=== PATIENT | female | born 1950 | race Caucasian/White ===

== ENCOUNTER 2021-03-28 10:03 | Outpatient (CLI) | payer MEDICARE, SELFPAY ==
[2021-03-28 10:33] LABS: Hemoglobin A1C 6.2 % (<5.7)
== END 2021-03-28 10:04 | disposition home or self-care (01) ==
PROVIDERS: PCP Family Medicine; Visit Provider Family Medicine
DX: E11.9 Type 2 diabetes mellitus without complications (principal)
CPT/HCPCS: 36415; 83036

== ENCOUNTER 2021-08-02 10:13 | Outpatient (CLI) | payer MEDICARE, SELFPAY ==
--- NOTE | ~2021-08-02 | MM_ITS ---
EXAMINATION: MM screening miller BI w lenny HISTORY: Screening TECHNIQUE: Craniocaudal and mediolateral oblique 3-D tomosynthesis images were obtained and synthetic 2-D images were generated. CAD analysis was submitted and interpreted. COMPARISON: 11/08/2016 BREAST PARENCHYMAL COMPOSITION: The breasts are heterogeneously dense, which may obscure small masses . FINDINGS: There is no evidence of suspicious mass, calcification, or architectural distortion to sugg est malignancy in either breast. There has been no suspicious interval change. IMPRESSION: 1. No mammographic evidence of malignancy. 2. Recommend routine screening mammography in one year. BI-RADS Category 1: Negative Reviewed, dictated and finalized at location A.
== END 2021-08-02 10:14 | disposition home or self-care (01) ==
LOC: CHSIMG 10:15
PROVIDERS: PCP Family Medicine; Visit Provider Family Medicine
DX: Z12.31 Encounter for screening mammogram for malignant neoplasm of breast (principal)
CPT/HCPCS: 77063; 77067

== ENCOUNTER 2022-02-06 09:41 | Outpatient (CLI) | payer MEDICARE, SELFPAY ==
[2022-02-06 09:59] LABS: Hematocrit 41.7 % (35.0-42.0); Hemoglobin 13.7 g/dL (11.7-13.8); Mean Corpuscular HGB Conc 32.9 g/dL (32.0-36.0); Mean Corpuscular Hemoglobin 33.3 pg (27.0-31.0); Mean Corpuscular Volume 101.5 fL (78.0-102.0); Mean Platelet Volume 8.9 fl (9.2-11.8); Platelet Count Result 290 K/mm3 (150-420); Red Blood Count 4.11 M/mm3 (4.20-5.40); Red Cell Distribution Width 12.5 % (11.6-14.4); White Blood Count 8.6 K/mm3 (4.8-10.8)
[2022-02-06 10:08] LABS: Microalbumin Urine Random 61.8 mg/L
[2022-02-06 10:10] LABS: Hemoglobin A1C 6.2 % (<5.7)
[2022-02-06 10:17] LABS: Creatinine Urine 332.14 mg/dL (40-278); MALB Creatinine Ratio 18.6 mg/g (0-30)
[2022-02-06 10:32] LABS: Alanine Aminotransferase 23 U/L (14-59); Albumin Level 4.2 g/dL (3.4-5.0); Alkaline Phosphatase 95 U/L (46-116); Anion Gap 10 mmol/L (8-16); Aspartate Amino Transferase 18 U/L (15-37); Bilirubin,Total 0.4 mg/dL (0.00-1.00); Blood Urea Nitrogen 20 mg/dL (7-18); Calcium 9.5 mg/dL (8.5-10.1); Carbon Dioxide 27 mmol/L (21-32); Chloride 102 mmol/L (98-108); Cholesterol 283 mg/dL (0-200); Estimated Glomerular Filt Rate 33; Glucose 136 mg/dL (70-99); HDL Direct 52 mg/dL (40-60); LDL Cholesterol Calculated 173 mg/dL (<130); Osmolality Calculated 292 mOsm/kg (285-295); Potassium 4.4 mmol/L (3.5-5.1); Sodium 139 mmol/L (136-145); Total Protein 7.6 g/dL (6.4-8.2); Triglycerides 291 mg/dL (0-150)
== END 2022-02-06 09:42 | disposition home or self-care (01) ==
LOC: CHSLAB 09:47
PROVIDERS: PCP Family Medicine; Visit Provider Family Medicine
DX: E11.9 Type 2 diabetes mellitus without complications (principal); I10 Essential (primary) hypertension
CPT/HCPCS: 36415; 80053; 80061; 82043; 83036; 85027

== ENCOUNTER 2022-02-11 08:31 | Outpatient (CLI) | payer MEDICARE, SELFPAY ==
--- NOTE | 2022-02-11 08:33 | EST_ITS ---
Patient Info Name: Soheila Chicas Age: 71 years : 1950 Gender: Female Ht: 60 in Wt: 177 lbs BSA: 1.88 m2 HR: 89 bpm BP: 151 / 70 mmHg Heart Rhythm: Sinus Rhythm Technical Quality: Excellent Exam Date: 02/11/2022 10:05 AM Exam Location: [facility] Patient Status: Outpatient Admit Date: 02/11/2022 Staff Ordering Physician: Edward Acharya DO Attending Provider: Edward Acharya DO Exercise Technologist: Ana Lucio CRT Exercise Physician: Angelina Parekh CEP Exam Type: CA stress mg w NM Study Info Indications LEWIS - A nuclear stress test was performed. History/Risk Factors Hypertension: Yes Dyslipidemia: Yes Obesity: Yes Diabetes Mellitus: Type II History/Risk Factors Dyslipidemia. Diabetes Type II. Hypertension. Obesity. Summary 1. 1. Abnormal lexiscan stress test for ischemic ST changes by ECG criteria. 2. 2. Baseline hypertension. 3. 3. Nuclear scan to follow and will be reported separately. Please correlate with it. Protocol: LEXISCAN Stress ECG Details Stage: REST Duration (min): 5 min : 12 sec HR (bpm): 89 SBP (mmHg): 151 DBP (mmHg): 70 Stage: REST Duration (min): 13 min : 49 sec HR (bpm): 83 SBP (mmHg): 151 DBP (mmHg): 70 Stage: STAGE 1 Duration (min): 0 min : 7 sec HR (bpm): 83 SBP (mmHg): 151 DBP (mmHg): 70 Stage: RECOVERY Duration (min): 0 min : 52 sec HR (bpm): 108 SBP (mmHg): 151 DBP (mmHg): 70 Stage: RECOVERY Duration (min): 1 min : 52 sec HR (bpm): 106 SBP (mmHg): 196 DBP (mmHg): 78 Stage: RECOVERY Duration (min): 2 min : 52 sec HR (bpm): 103 SBP (mmHg): 190 DBP (mmHg): 79 Stage: RECOVERY Duration (min): 3 min : 52 sec HR (bpm): 104 SBP (mmHg): 185 DBP (mmHg): 79 Stage: RECOVERY Duration (min): 4 min : 52 sec HR (bpm): 105 SBP (mmHg): 183 DBP (mmHg): 76 Stage: RECOVERY Duration (min): 5 min : 52 sec HR (bpm): 105 SBP (mmHg): 183 DBP (mmHg): 76 Stage: RECOVERY Duration (min): 6 min : 11 sec HR (bpm): 105 SBP (mmHg): 150 DBP (mmHg): 81 Rest HR: 83 bpm Peak HR: 108 bpm Rest Sys BP: 151 mmHg Peak Sys BP: 196 mmHg Max Pred HR: 148 bpm % Max Pred HR: 73 % Target HR: 126 bpm Max RPP: 21,168 bpm*mmHg BP Response: Patient exhibited a hypertensive response with stress Termination Reason: Completed Protocol Cardiac Symptoms: Flushing, Chest pain, Dyspnea Total Time: 0 min : 7 sec Rest Rios BP: 70 mmHg Peak Rios BP: 78 mmHg Total Dose: 0.4 mg Resting ECG Normal sinus rhythm, borderline ST-T wave abnormality in inf/lat leads. Stress ECG 1 mm [address] and horizontal [address] depression in II, III, avF, V5-V6. Arrhythmias None. Report Signatures
--- NOTE | 2022-02-11 12:07 | WPDCARIOSTRE ---
Nuclear Stress Test INDICATIONS Indications: LEWIS PROCEDURE Procedure Performed: Myocardial Perf Spect-Multi Procedure: Patient underwent a lexiscan stress test and was immediately injected with 28.9 mCi of cardiolyte. Multiple tomographic images were obtained. These are of good quality. There is no evidence of perfusion defect during stress imaging. A separate resting images were obtained after patient was injected with 10 mCi of cardiolyte. Multiple tomographic images were obtained. These are of good quality. There is no evidence of perfusion defect during rest imaging. CONCLUSION Conclusion: 1. Normal myocardial perfusion imaging demonstrating no perfusion defects during stress or rest imaging. 2. No evidence of reversible ischemia. 3. Left ventriculogram demonstrates hyperdynamic LV systolic function with measured ejection fraction of 87%, and no wall motion abnormalities. The left ventricle is small with EDV at 25 ml. 4. TID score is normal at 0.99.
== END 2022-02-11 08:32 | disposition home or self-care (01) ==
LOC: CHSIMG 08:33
PROVIDERS: PCP Family Medicine; Visit Provider Family Medicine
DX: R06.00 Dyspnea, unspecified (principal); I10 Essential (primary) hypertension
CPT/HCPCS: 78452; 93017; A9502; J2785

== ENCOUNTER 2022-02-22 09:57 | Outpatient (CLI) | payer MEDICARE, SELFPAY ==
--- NOTE | 2022-02-28 14:17 | WPDPFTINT ---
PFT Procedure Performed PFT Procedure Performed Spirometry with Pre/Post Bronchodilator Plethysmography (Lung Vol) Diffusing Cap (DLCO) Flow Vol Loop PFT Interpretation DOS: 02/23/20 133%, REQUESTING: Dr. Acharya REASON FOR TESTING: Dyspnea PULMONARY FUNCTION TESTS Results are reliable and reproducible. Spirometry: The pre bronchodilator FEV1 is 65% predicted, 1.18 L, mildly decreased. The pre bronchodilator FVC is 68%, mildly reduced, 1.53 L. The FEV1/ FVC ratio was 93%, normal. The FEF 25-75% is 58% predicted with a 34% increase after bronchodilator administration. There is a 15% increase in the FEV1 which is less than 200 mL so this is not statistically significant. The FVC increases by 9% after bronchodilator therapy which is not statistically significant. Lung volumes: Total lung capacity is increased 123% predicted, 4.91 L. This is consistent with mild hyperinflation. The slow vital capacity is 75% predicted, and this is larger than the forced vital capacity in the spirometry. There is an absolute increase of 170 ml which may be significant. The FRC is increased to 173% predicted. the residual volume is 196% predicted, consistent with severe air trapping, 3.21 L. RV/ TLC increased 65% predicted also consistent with air trapping. Airway resistance is normal. Diffusion: DLCO is 64%, mildly decreased. The DLCO/VA is 133%. Flow volume loop: Normal. IMPRESSION: This study indicates a small airways pattern with good response to bronchodilator in the small airways, mild hyperinflation, severe air trapping, and a mild diffusion impairment. Gayle Long MD
== END 2022-02-22 09:58 | disposition home or self-care (01) ==
PROVIDERS: PCP Family Medicine; Visit Provider Family Medicine
DX: R68.89 Other general symptoms and signs (principal); R06.00 Dyspnea, unspecified
CPT/HCPCS: 94060; 94726; 94729

== ENCOUNTER 2022-06-06 00:31 | Day surgery (SDC) | payer MEDICARE, SELFPAY ==
[2022-06-05 11:43] VITALS: BMI 34.0
[2022-06-06] VITALS (9 sets, daily range): BP systolic 142–167; BP diastolic 62–80; PULSE 73–79; RESP 18–22; TEMP 36.6; O2SAT 97–100; BMI 34.2
[2022-06-06] MEDS: SODIUM CHLORIDE 0.9% IV 500 ML 100 ML IV CONT (07:35)
[2022-06-06 07:50] LABS: Basophils Percent Auto 0.6 % (0.2-1.2); Eosinophils Percent Auto 0.2 % (0-4.4); Hematocrit 37.6 % (37.0-47.0); Hemoglobin 12.1 g/dL (12.0-15.0); Immature Granulocyte Absolute 0.02 K/mm3 (0.00-0.031); Immature Granulocyte Percent A 0.3 % (0-0.5); Lymphocytes Percent Auto 27.4 % (18.3-44.2); Mean Corpuscular HGB Conc 32.2 g/dl (32-36); Mean Corpuscular Hemoglobin 31.2 pg (26-34); Mean Corpuscular Volume 96.9 fl (80-100); Mean Platelet Volume 9.1 fl (7.4-10.4); Monocytes Absolute Auto 0.6 K/mm3 (0.1-0.6); Monocytes Percent Auto 9.5 % (2.6-8.5); Neutrophils Absolute Auto 4.1 K/mm3 (1.3-6.7); Platelet Count Result 272 k/mm3 (150-375); Red Blood Count 3.88 M/mm3 (4.2-5.4); Red Cell Distribution Width 12.4 % (11.5-14.5); White Blood Count 6.6 K/mm3 (4.5-10.0)
[2022-06-06 08:02] LABS: Anion Gap 10 mmol/L (8-16); Blood Urea Nitrogen 15 mg/dL (7-17); Calcium 8.9 mg/dL (8.4-10.2); Carbon Dioxide 26 mmol/L (22-30); Chloride 102 mmol/L (98-107); Estimated CRCL calculation 32 ml/min; Estimated Glomerular Filt Rate 40; Glucose 134 mg/dL (65-110); Prothrombin Time 12.7 Seconds (11.1-14.7); Sodium 138 mmol/L (137-145)
--- NOTE | 2022-06-06 10:33 | WPDHPUPDATE1 ---
History and Physical Update Update Date/Time: 06/06/22 10:33 History and Physical has been reviewed, including an updated exam of the patient. There are NO changes in the patient's condition. Risks, benefits, and alternatives have been discussed and questions answered. Patient agrees to proceed with procedure.
--- NOTE | 2022-06-06 10:33 | WPDMODSED ---
Moderate Sedation Note-Pt Data Patient Data Diagnosis: abnormal stress test Present Complaint: dyspnea on exertion Procedure to be performed/Plan: coronary angiogram with left heart catheterization with possible intervention Allergies Allergy/AdvReac Type Severity Reaction Status Date / Time prochlorperazine [Compazine] Allergy Intermediate Itching Verified 06/06/22 07:30 meperidine [Demerol] AdvReac Intermediate Other Verified 06/06/22 07:30 Home Medications Medication Instructions Recorded Confirmed Type oxybutynin chloride 5 mg 5 mg PO DAILY #90 tabs 02/06/22 06/05/22 Rx tablet,extended release 24 hr ropinirole 1 mg tablet 1 mg PO DAILY #30 tabs 02/08/22 06/05/22 Rx albuterol sulfate 90 mcg/actuation 1 inh inhalation Q4H PRN shortness 03/05/22 06/05/22 Rx aerosol inhaler of breath or wheezing #8.5 grams aspirin 81 mg capsule 81 mg PO DAILY 06/05/22 06/05/22 History atorvastatin 80 mg tablet 80 mg PO DAILY 06/05/22 06/05/22 History chlorpheniramine-dextromethorphan 1 tablet PO Q4-5H PRN cough and 06/05/22 06/05/22 History 4 mg-20 mg tablet runny nose gabapentin 300 mg capsule 300 mg PO TID 06/05/22 06/05/22 History metoprolol succinate 100 mg 100 mg PO DAILY 06/05/22 06/05/22 History tablet,extended release 24 hr multivitamin 1 tablet PO DAILY 06/05/22 06/05/22 History nifedipine 30 mg tablet,extended 30 mg PO DAILY 06/05/22 06/05/22 History release 24 hr valsartan 160 mg tablet 160 mg PO DAILY 06/05/22 06/05/22 History Current Medications: Active Medications Sodium Chloride (Normal Saline Iv) 500 mls @ 100 mls/hr IV CONT .Q5H ONE Stop: 06/06/22 12:29 Last Admin: 06/06/22 07:35 Dose: 100 mls/hr Sedation/Anesthesia: No previous sedation/anesthesia problems (including family history). [facility] Past Medical History Medical History Breast pain, right Chronic GERD CVA (cerebral vascular accident) Hyperlipidemia Hypertension Restless legs syndrome (RLS) Type 2 diabetes mellitus Urinary incontinence Surgical History Surgical History H/O dilation and curettage Family History Family History Father Family history of congenital heart disease Family history of malignant neoplasm Mother Family history of arthritis Mother Family history of type 2 diabetes mellitus Other Acute myocardial infarction Social History Social History Smoking status: Never smoker Alcohol intake: current Alcohol use details: rare social use Substance use: never Substance use type: does not use and prescription drug Living arrangements: alone Spiritual care concerns: No Mod Sed Physical Exam Physical Exam Pre Procedural Exam: Normal: Appearance, Eyes, Ears, Nose, Neck, Throat, Airway, Lungs, Heart Size, Heart Rate, Heart Rhythm, Neuro Exam, Abdomen, Liver, Kidneys, Spleen, Breasts, Genitalia, Extremities and Skin Hours since solid foods: 8 Hours since liquid intake: 8 Mallampati Classification: class 1 Internal Medicine - PN: Obj Da Vital Signs Vital Signs: Vital Signs - 24 hr 06/06/22 07:41 Temperature 36.6 C Pulse Rate 75 Respiratory Rate 19 Blood Pressure 155/62 H Pulse Oximetry 98 Oxygen Delivery Room Air Meds/Results Medications: Active Medications Generic Name Dose Route Start Last Admin Trade Name Freq PRN Reason Stop Dose Admin Sodium Chloride 500 mls @ 100 mls/hr 06/06/22 07:30 06/06/22 07:35 Normal Saline Iv IV CONT 06/06/22 12:29 100 mls/hr .Q5H ONE Administration Labs CBC & Chem 7: 06/06/22 07:28 06/06/22 07:28 Labs: Laboratory Results - last 24 hr 06/06/22 06/06/22 06/06/22 07:28 07:28 07:28 WBC 6.6 RBC 3.88 L Hgb 12.1 Hct 37.6 MCV 96.[address]
--- NOTE | 2022-06-06 10:33 | WPDCARDPROC ---
Cardiac Cath Procedure Note Date of procedure:: 06/06/22 Performing physician:: Candido Valle MD date of service 06/06/2022 Indication:: dyspnea on exertion Brief clinical history:: this 72-year-old female with past history of type 2 diabetes, CKD stage 3, obesity who was evaluated by Dr. Gonzalez for dyspnea on exertion and underwent Lexiscan stress test. The EKG portion was positive for ischemia but the imaging portion was negative for ischemia. Due to presence of persistent symptoms we decided to bring her here to rule out CAD. Procedure Procedure performed:: 1-Moderate sedation that started at and ended at using 6mg of Versed and 75mcg fentanyl. The registered nurse was marci hinson. 2-Selective left and right coronary angiogram. 3-Left heart catheterization with measurement of LVEDP and measurement of gradient across aortic valve. 4-Right common femoral arterial angiogram. 5-Deployment of 6 Mongolian Angio-Seal. 6- intravascular ultrasound of the left main coronary artery. 7- Deployment of a drug-eluting stent orsiro 2.75 x 15 covering proximal left circumflex artery. Sedation/Medication given:: Moderate sedation. Access site:: Right common femoral artery. Estimated blood loss:: 10cc Procedure note:: After informed consent patient was brought in to section laborer with the was draped and prepped in usual manner. Moderate sedation was given and the right groin was infiltrated using 1% lidocaine. Five Mongolian sheath was obtained using micropuncture needle and the modified Seldinger technique. Selective left coronary angiogram was done using JL4 catheter with the tip of the catheter placed in the left main coronary artery. Selective right coronary angiogram was done using JR4 catheter with the tip of the catheter placed to the right coronary artery. After that 5 Mongolian pigtail catheter was advanced across the aortic valve into the left ventricle with measurement of LVEDP and measurement of gradient across aortic valve. Right common femoral arterial angiogram was done. the right groin sheath was changed to 6 Mongolian sheath. After that CLS 3 was advanced and engaged the left main. Coronary luge wire was advanced to a ramus. Intravascular ultrasound was done with 5 total runs. Measurements of the distal left main 6.7 millimeter sq. after that the luge wire was directed to the left circumflex artery and balloon angioplasty of the proximal left circumflex artery done using 3 x 10 balloon under normal pressure for 25 seconds. Then deployed a drug-eluting stent orsiro 2.75 x 15 under normal pressure for 35 seconds. Findings:: 1- left coronary artery is a large artery that divides into large LAD, large circumflex arter, large ramusy. distal left main about 50%. 2- left anterior descending artery is a large artery that runs and wraps around the apex. At the junction of the mid to distal segment 40% calcified stenosis. Diagonal 1 branch is small with about 40-50% stenosis. Small diagonal 2 branch. 3- leftcircumflex artery is a large artery None at the junction of the proximal to mid segment 90%. 4- Ramus intermedius has diffuse 40-50% proximally. 4- right coronary artery is Large artery and dominant without significant disease. 5- LVEDP was 12mmhgand no gradient across aortic valve. 6- opening arterial pressure was 180/90 and closing pressure was 160/70 7- right femoral artery angiogram shows no significant disease in the right common femoral artery. 8- intravascular ultrasound of the left main coronary artery shows that the minimal luminal area 6.7 millimeter sq. Conclusion:: - Distal left main 50% with minimal luminal area on IVUS 6.7 millimeter sq. - successful stenting of proximal left circumflex artery Assessment and Plan Assessment and plan (1) Abnormal stress test: Code(s): R94.39 - Abnormal result of other cardiovascular function study Status: Acute (2) LEWIS (dyspnea on exertion): Code(s): R06.09 - Other forms
--- NOTE | 2022-06-06 15:40 | SUR.PHASEII ---
Discharge instructions read and handouts given to pt and daughter. pt and daughter states understanding of discharge instructions. Brilinta samples given to pt & instructed for pt to warehouse order picker rx at pharmacy.
== END 2022-06-06 17:00 | disposition home or self-care (01) ==
PROVIDERS: PCP Family Medicine; Visit Provider Internal Medicine Cardiovascular Disease
PROC: 4A023N7 Measurement of Cardiac Sampling and Pressure, Left Heart, Percutaneous Approach (ICD-10-PCS; CPT 93452; principal; 2022-06-06 10:30)
PROC: (CPT 92928; 2022-06-06 10:30)
DX: I25.10 Atherosclerotic heart disease of native coronary artery without angina pectoris (principal); R94.39 Abnormal result of other cardiovascular function study; R06.09 Other forms of dyspnea; I12.9 Hypertensive chronic kidney disease with stage 1 through stage 4 chronic kidney disease, or unspecified chronic kidney disease; E11.22 Type 2 diabetes mellitus with diabetic chronic kidney disease; N18.30 Chronic kidney disease, stage 3 unspecified; G25.81 Restless legs syndrome; K21.9 Gastro-esophageal reflux disease without esophagitis; E78.5 Hyperlipidemia, unspecified; Z86.73 Personal history of transient ischemic attack (TIA), and cerebral infarction without residual deficits; R32 Unspecified urinary incontinence; Z79.51 Long term (current) use of inhaled steroids; Z79.82 Long term (current) use of aspirin
CPT/HCPCS: 36415; 80048; 85025; 85610; 92978; 93458; A9270; C1753; C1760; C1874; C1887; C1894; C9600; G0269; J0583; J1644; J2250; J3010; J7040

== ENCOUNTER 2022-12-31 09:30 | Outpatient (RCR) | payer MEDICARE, SELFPAY | END 2022-12-31 15:32 | disposition home or self-care (01) | PROVIDERS: PCP Family Medicine; Visit Provider Internal Medicine Cardiovascular Disease | DX: Z95.5 Presence of coronary angioplasty implant and graft (principal) | CPT/HCPCS: 93798 ==

== ENCOUNTER 2023-01-02 09:17 | Outpatient (RCR) | payer MEDICARE, SELFPAY | END 2023-01-16 13:40 | disposition home or self-care (01) | LOC: CHSCPRIII 09:17 | PROVIDERS: PCP Family Medicine; Visit Provider Internal Medicine Cardiovascular Disease | DX: Z95.5 Presence of coronary angioplasty implant and graft (principal) | CPT/HCPCS: 99199 ==

== ENCOUNTER 2023-11-27 08:40 | Outpatient (CLI) | payer MEDICARE, SELFPAY ==
--- NOTE | 2023-11-27 15:59 | P.PCNPFT_ITS ---
PFT Interpretation DOS: 11/27/2023 REQUESTING: Dr. Edward Acharya REASON FOR TESTING: dyspnea on exertion PULMONARY FUNCTION TESTS Results were reliable reproducible. Spirometry: Pre-bronchodilator FEV1 is 1.34 L, 60% reduced. Pre- bronchodilator FVC is 1.05 L, 58%, reduced. The slow vital capacity is 1.61 L, 70%. FEV1/SVC =65%, reduced, consistent with airflow obstruction. After bronchodilator, there is a 26% increase in the FEV1, 1.32 L, 74% predicted. After bronchodilator, there is a 31% increase in the FVC, 1.77 L, 79%, now in the normal range. This is a significant increase in flow. The FEV1/FVC ratio is 75% after bronchodilator, normal. The [id number]% is 54%, and this value decreases 19% after bronchodilator. Lung volumes: Total lung capacity is 4.52 L, 114% predicted, normal. Slow vital capacity is 1.61 L, 70% predicted, higher than forced vital capacity obtained during spirometry. This large difference between SVC and FVC is consistent with dynamic airway collapse, a feature of obstruction. Residual volume is 2.91 L, 177%, elevated, consistent with severe air trapping. Airway resistance 135%. Diffusion: DLCO is 11.3, 62%, mildly decreased. DLCO /VA is 4.40, 128%, normal. Flow volume loop: Unremarkable. IMPRESSION: Mild obstructive ventilatory impairment, good response to bronchodilator, no hyperinflation, severe air trapping, mild diffusion impairment. This is a similar pattern to prior PFT on 02/23/2020. FEV1 was 1.18 L, 65%, FVC was 1.53 L, 68% which is similar to slow VC 1.61 L, 70%. Gayle Long MD
== END 2023-11-27 08:41 | disposition home or self-care (01) ==
PROVIDERS: PCP Family Medicine; Visit Provider Family Medicine
DX: J44.9 Chronic obstructive pulmonary disease, unspecified (principal); R94.2 Abnormal results of pulmonary function studies
CPT/HCPCS: 94060; 94726; 94729

== ENCOUNTER 2024-08-12 13:14 | Emergency (ER) | payer MEDICARE, SELFPAY ==
[2024-08-12] VITALS (7 sets, daily range): BP systolic 118–129; BP diastolic 53–73; PULSE 66–72; RESP 18–23; TEMP 36.6–36.7; O2SAT 98–100
--- NOTE | ~2024-08-12 | CT_ITS ---
EXAMINATION: CT brain wo con DATE: 08/12/2024 13:56 INDICATION: Near syncope. TECHNIQUE: Computed tomography (CT) of the head was performed without intravenous contrast. The mA wa s adjusted according to patient size. Iterative reconstruction technique was employed. The dose-lengt h product was 605.33 mGy-cm. COMPARISON: Head CT 01/14/2018 FINDINGS: There is an old infarct involving the left basal ganglia and adjacent white matter. There a re scattered areas of low attenuation in the cerebral white matter. There is no intracranial hemorrha ge, acute infarction, or abnormal intracranial mass lesion. The ventricles are normal in size. There are likely changes of ocular lens replacement surgeries. IMPRESSION: 1. Old infarct involving the left basal ganglia and adjacent white matter. 2. Moderate nonspecific cerebral white matter disease, which likely represents chronic small vessel i schemic disease. Reviewed, dictated and finalized at location A. IMPRESSION: 1. Old infarct involving the left basal ganglia and adjacent white matter. 2. Moderate nonspecific cerebral white matter disease, which likely represents chronic small vessel ischemic disease.
--- NOTE | 2024-08-12 13:25 | ECG_ITS ---
Test Date: 2024-08-12 13:34:55 Measurements Intervals [place] Rate: 64 P: 55 OK: 143 QRS: -1 QRSD: 84 T: 71 QT: 409 QTc: 422 Interpretive Statements SINUS RHYTHM NONSPECIFIC T-WAVE ABNORMALITY BORDERLINE ECG No previous ECG available for comparison Electronically Signed On 08-13-2024 12:43:05 CDT by Doug Severino M.D.
[2024-08-12 13:47] LABS: Basophils Absolute Auto 0.04 K/mm3 (0.00-0.10); Basophils Percent Auto 0.5 % (0.0-1.0); Hematocrit 35.9 % (35.0-42.0); Hemoglobin 11.9 g/dL (11.7-13.8); Immature Granulocyte Absolute 0.04 K/mm3 (0.00-0.00); Immature Granulocyte Percent A 0.5 % (0.0-0.0); Lymphocytes Absolute Auto 1.67 K/mm3 (1.10-4.50); Lymphocytes Percent Auto 21.5 % (18.0-42.0); Mean Corpuscular HGB Conc 33.1 g/dL (32-36); Mean Corpuscular Hemoglobin 31.8 pg (27.0-31.0); Mean Platelet Volume 9.4 fl (9.2-11.8); Monocytes Absolute Auto 0.59 K/mm3 (0.10-0.90); Monocytes Percent Auto 7.6 % (2.0-11.0); Neutrophils Absolute Auto 5.43 K/mm3 (1.70-7.20); Neutrophils Percent Auto 69.9 % (50.0-70.0); Nucleated Red Blood Cells Absolute Auto 0.02 K/mm3 (0.00-0.00); Nucleated Red Blood Cells Perc 0.3 % (0-0.0); Platelet Count Result 250 K/mm3 (150-420); Red Blood Count 3.74 M/mm3 (4.20-5.40); Red Cell Distribution Width 13.7 % (11.6-14.4); White Blood Count 7.8 K/mm3 (4.8-10.8)
[2024-08-12 14:10] LABS: Alanine Aminotransferase 22 U/L (14-59); Albumin Level 3.7 g/dL (3.4-5.0); Alkaline Phosphatase 122 U/L (46-116); Anion Gap 8 mmol/L (4-12); Aspartate Amino Transferase 25 U/L (15-37); Bilirubin,Total 0.5 mg/dL (0.00-1.00); Blood Urea Nitrogen 22 mg/dL (7-18); Calcium 9.2 mg/dL (8.5-10.1); Carbon Dioxide 27 mmol/L (21-32); Chloride 103 mmol/L (98-108); Estimated CRCL calculation 20 ml/min; Estimated Glomerular Filt Rate 23; Glucose 146 mg/dL (70-99); Osmolality Calculated 292 mOsm/kg (285-295); Potassium 3.6 mmol/L (3.5-5.1); Sodium 138 mmol/L (136-145); Total Protein 7.5 g/dL (6.4-8.2); Troponin I 4.5 ng/L (0.00-60.4)
[2024-08-12 14:16] LABS: NT Pro B Type Natriuretic Pept 298 pg/mL (0-450)
--- NOTE | 2024-08-12 14:22 | ED.DIZZY ---
HPI - Dizziness General Chief Complaint: Syncope Stated Complaint: syncopal episode; sob Source: patient, family and EMS Mode of arrival: EMS Limitations: no limitations History of Present Illness HPI Narrative: this is a 74-year-old female with history of hypertension/ CAD has a history of pre syncopal episodes today was sitting in her chair and slid out of her chair onto the floor did not pass out did not hit her head or have any injuries patient is back to her baseline was brought in by EMS currently doing well no dizziness no lightheadedness no chest pain or shortness of breath no fever chills. MD elicited complaint: near syncope Onset (ago): hour(s) Timing: gradual onset Severity: mild Description: lightheadedness Related Data Home Medications Medication Instructions Recorded Confirmed multivitamin 1 tablet PO DAILY 06/05/22 08/12/24 ticagrelor 60 mg tablet (Brilinta) 60 mg PO Q12H 10/21/23 08/12/24 Allergies Allergy/AdvReac Type Severity Reaction Status Date / Time prochlorperazine [Compazine] Allergy Intermediate Itching Verified 08/12/24 13:27 meperidine [Demerol] AdvReac Intermediate Other Verified 08/12/24 13:27 Review of Systems Review of Systems: All systems reviewed & are unremarkable except as noted in HPI and below PMFSH Past Medical History Medical History Breast pain, right Chronic GERD CVA (cerebral vascular accident) Hyperlipidemia Hypertension Restless legs syndrome (RLS) Type 2 diabetes mellitus Urinary incontinence Surgical History Surgical History H/O dilation and curettage Family History Family History Father Family history of congenital heart disease Family history of malignant neoplasm Mother Family history of arthritis Mother Family history of type 2 diabetes mellitus Other Acute myocardial infarction Social History Social History Smoking status: Never smoker Alcohol intake: current Alcohol use details: rare social use Substance use: never Substance use type: does not use and prescription drug Living arrangements: alone Spiritual care concerns: No Exam Const: General: healthy appearing, no acute distress and alert Nutritional Appearance: well nourished Orientation/consciousness: patient oriented x3 Limitations: no limitations HENMT: Head: normal to inspection Eyes: Conjunctivae: conjunctivae normal Pupils: Equal, round and reactive pupils present EOM: EOMs intact bilaterally Direct Ophthalmoscopy: no photophobia Neck: Neck: normal visual inspection and no lymphadenopathy Chest: Chest palpation & inspection: normal inspection of the chest Resp: Effort & Inspection: normal respiratory effort Auscultation: clear to auscultation bilaterally Cardio: Rate: regular rate Rhythm: regular rhythm GI: GI Palp: Yes Soft to palpation Auscultation: normal bowel sounds : General: Yes bladder normal to palpation Skin: General skin exam: normal color Rashes: no rashes Wounds: no wounds Neuro: General: patient oriented x3, moves all extremities, no meningeal signs and no focal motor deficits Cranial nerves: Yes Nystagmus not present Speech: normal speech Course Course Emergency Course: Patient had CT scan of the brain which showed no acute abnormalities EKG performed shows normal sinus rhythm labs performed show a chronic kidney disease otherwise vitals are stable advised follow-up with primary. Vital Signs Vital signs: Vital Signs Temperature 36.7 C 08/12/24 13:20 Pulse Rate 72 08/12/24 13:20 Respiratory Rate 18 08/12/24 13:20 Blood Pressure 129/53 L 08/12/24 13:20 Pulse Oximetry 100 08/12/24 13:20 Oxygen Delivery Room Air 08/12/24 13:20 Temperature 36.7 C 08/12/24 13:20 Pulse Rate 6
== END 2024-08-12 14:35 | disposition home or self-care (01) ==
PROVIDERS: Emergency Provider Emergency Medicine; PCP Family Medicine
DX: R55 Syncope and collapse (principal); I25.10 Atherosclerotic heart disease of native coronary artery without angina pectoris; E78.5 Hyperlipidemia, unspecified; E11.9 Type 2 diabetes mellitus without complications; Z86.73 Personal history of transient ischemic attack (TIA), and cerebral infarction without residual deficits; W07.XXXA Fall from chair, initial encounter
CPT/HCPCS: 36415; 70450; 80053; 83605; 83880; 84484; 85025; 93005; 99284

== ENCOUNTER 2024-08-30 16:32 | Emergency (ER) | payer MEDICARE, SELFPAY ==
[2024-08-30] VITALS (8 sets, daily range): BP systolic 133–165; BP diastolic 60–83; PULSE 62–64; RESP 18; TEMP 36.5–37; O2SAT 97–98
--- NOTE | ~2024-08-30 | CT_ITS ---
CT abdomen pelvis w con Ordering provider: Fermin Bustos MD History: 74 years Female with . NAUSEA . Comparison: None. Technique: CT abdomen and pelvis with IV and without oral contrast. Automated exposure control and it erative reconstruction technique were employed. The dose-length product was 397.95 mGy-cm. 100 mL Omn ipaque 350 was given IV. Findings: VISUALIZED LOWER CHEST: Dependent atelectatic changes. UPPER ABDOMINAL ORGANS: Liver: Normal. Gallbladder: Normal. Spleen: Normal. Stomach/duodenum: Normal. Pancreas: Normal. Adrenals: Normal. Kidneys: Normal. PELVIC ORGANS: The bladder is normal. BOWEL AND MESENTERY: Colon: No evidence of diverticulitis. Normal appendix. Small Bowel: Normal. No obstruction. Peritoneum/mesentery: No free air or free fluid. No mesenteric lymphadenopathy. RETROPERITONEUM: Mild atheromatous disease of the abdominal aorta. No retroperitoneal lymphadenopat hy. MUSCULOSKELETAL: Superficial soft tissues: The superficial soft tissues are normal. Bones: Age appropriate degenerative changes of the spine. Levoscoliosis. Anterolisthesis at the level of L4-L5. IMPRESSION: 1. No evidence of appendicitis, diverticulitis or intestinal obstruction. Reviewed, dictated and finalized at location A.
--- NOTE | 2024-08-30 16:34 | ED_ITS ---
HPI - General Adult General Chief complaint: Weakness Stated complaint: weakness Time Seen by Provider: 08/30/24 16:33 Source: patient and EMS Mode of arrival: EMS History of Present Illness HPI narrative: 74 YEARS OLD WHITE FEMALE CAME FROM HOME BY AMBULANCE BECAUSE OF WEAKNESS AND NAUSEA FOR THE LAST 3 WEEKS. PATIENT DENIES ANY FEVER, CHILLS, VOMITING, DIARRHEA, CONSTIPATION, ABDOMINAL PAIN, CHEST PAIN, SHORTNESS BREATH, BACK PAIN OR HEADACHE. PATIENT DENIES ANY UPPER RESPIRATORY SYMPTOMS. PATIENT LIVES ALONE. Related Data Home Medications Medication Instructions Recorded Confirmed multivitamin 1 tablet PO DAILY 06/05/22 08/30/24 ticagrelor 60 mg tablet (Brilinta) 60 mg PO Q12H 10/21/23 08/30/24 Allergies Allergy/AdvReac Type Severity Reaction Status Date / Time prochlorperazine [Compazine] Allergy Intermediate Itching Verified 08/30/24 16:43 meperidine [Demerol] AdvReac Intermediate Other Verified 08/30/24 16:43 Review of Systems Review of Systems: All systems reviewed & are unremarkable except as noted in HPI and below PMFSH Past Medical History Medical History Breast pain, right Chronic GERD CVA (cerebral vascular accident) Hyperlipidemia Hypertension Restless legs syndrome (RLS) Type 2 diabetes mellitus Urinary incontinence Surgical History Surgical History H/O dilation and curettage Family History Family History Father Family history of congenital heart disease Family history of malignant neoplasm Mother Family history of arthritis Mother Family history of type 2 diabetes mellitus Other Acute myocardial infarction Social History Social History Smoking status: Never smoker Alcohol intake: current Alcohol use details: rare social use Substance use: never Substance use type: does not use and prescription drug Living arrangements: alone Spiritual care concerns: No Exam Narrative: GENERAL APPEARANCE: WELL-DEVELOPED, WELL-NOURISHED SKIN: PALE HEAD: NORMOCEPHALIC, NONTRAUMATIC EYES: CLEAR CONJUNCTIVA ENT: OROPHARYNX NORMAL, EARS NORMAL, NOSE NORMAL NECK: SUPPLE, NONTENDER CHEST AND RESPIRATORY: AIRWAY PATENT, NO RESPIRATORY DISTRESS, NO ACCESSORY MUSCLE USE HEART: REGULAR RATE/RHYTHM ABDOMEN: SOFT, NONTENDER, NO ORGANOMEGALY, QUIET BOWEL SOUNDS VASCULAR: NORMAL PERIPHERAL PULSES, NORMAL CAPILLARY REFILL. MUSCULOSKELETAL: NORMAL RANGE OF MOTION, NONTENDER BACK NEUROLOGIC: ALERT AND ORIENTED ?3, BRAZER CRAWLER TORCH IS NORMAL TESTED, NO GROSS MOTOR DEFICIT Course Vital Signs Vital signs: Vital Signs Temperature 36.5 C 08/30/24 16:32 Pulse Rate 62 08/30/24 16:32 Respiratory Rate 18 08/30/24 16:32 Blood Pressure 151/63 H 08/30/24 16:32 Pulse Oximetry 98 08/30/24 16:32 Oxygen Delivery Room Air 08/30/24 16:32 Temperature 36.5 C 08/30/24 16:32 Pulse Rate 62 08/30/24 16:32 Respiratory Rate 18 08/30/24 16:32 Blood Pressure 149/60 H 08/30/24 18:31 Pulse Oximetry 97 08/30/24 18:31 Oxygen Delivery Room Air 08/30/24 16:32 Medical Decision Making MDM Narrative Medical decision making narrative: PATIENT CAME FROM HOME BY AMBULANCE COMPLAINING OF NAUSEA AND WEAKNESS FOR 3 WEEKS. VITAL SIGNS ARE STABLE DIFFERENTIAL DIAGNOSIS INCLUDE ANXIETY, DEPRESSION, URINARY TRACT INFECTION, ELECTROLYTE IMBALANCE, DEHYDRATION, INTRA-ABDOMINAL PATHOLOGY BLOOD WORKUP TODAY SHOWED WBC OF 5.3, HEMOGLOBIN 10.8, CREATININE OF 1.2 COMPARED TO 2.07, 18 DAYS AGO URINALYSIS SHOWED POSSIBLE URINARY TRACT INFECTION, DISCHARGED ON MACROBID. PATIENT RECEIVED 1ST TABLET IN THE ED PRIOR TO DISCHARGE CT ABDOMEN AND PELVIS WITH IV CONTRAST SHOWED NO ACUTE ABNORMALITIES. DIAGNOSIS: NAUSEA WHICH COULD BE SECONDARY TO URINARY TRACT INFECTION VERSUS DEPRESSION AND LONELINESS. PATIENT IS SCHEDULED SEE HER FAMILY PHYSICIAN TOMORROW THE PT WAS DISCHARGED TO HOME.THE PT,S CONDITION UPON DISCHARGE WAS FAIR,EDUCATION WAS PROVIDED TO THE PT IN REFERENCE TO THE FINAL IMPRESSION,DISCHARGE STUDY RESULTS,TREATMENT,PROGNOSIS AND NEED FOR FOLLOW UP . Differential Diagnosis Differential Diagnosis: ABOVE Vital Signs Vital Signs: Vital Signs Temperature 36.5 C 08/30/24 16:32 Pulse Rate 62 08/30/24 16:32 Respiratory Rate 18 08/30/24 16:32 Blood Pressure 151/63 H 08/30/24 16:32 Pulse Oximetry 98 08/30/24 16:32 Oxygen Delivery Room Air 08/30/24 16:32 Temperature 36.5 C 08/30/24 16:32 Pulse Rate 62 10/28/24 16:32 Respiratory Rate 18 08/30/24 16:32 Blood Pressure 149/60 H 08/30/24 18:31 Pulse Oximetry 97 08/30/24 18:31 Oxygen Delivery Room Air 08/30/24 16:32 Lab Data 08/30/24 16:50 08/30/24 16:50 Labs: Lab Results 08/30/24 08/30/24 Range/Units 16:50 17:59 WBC 5.3 (4.8-10.8) K/mm3 RBC 3.35 L (4.20-5.40) M/mm3 Hgb 10.8 L (11.7-13.8) g/dL Hct 32.0 L (35.0-42.0) % MCV 95.5 (78.0-102.0) fL MCH 32.2 H (27.0-31.0) pg MCHC 33.8 (32-36) g/dL RDW 13.8 (11.6-14.4) % Plt Count 228 (150-420) K/mm3 MPV 9.7 (9.2-11.8) fl Immature Gran % (Auto) 0.4 H (0.0-0.0) % Neut % (Auto) 59.2 (50.0-70.0) % Lymph % (Auto) 30.6 (18.0-42.0) % [place] % (Auto) 9.2 (2.0-11.0) % Eos % (Auto) 0.0 L (1.0-6.0) % Baso % (Auto) 0.6 (0.0-1.0) % Lymph # (Auto) 1.63 (1.10-4.50) K/mm3 [place] # (Auto) 0.49 (0.10-0.90) K/mm3 Eos # (Auto) 0.00 L (0.02-0.50) K/mm3 Baso # (Auto) 0.03 (0.00-0.10) K/mm3 Abs Immat Gran (auto) 0.02 H (0.00-0.00) K/mm3 Absolute Neuts (auto) 3.15 (1.70-7.20) K/mm3 Absolute Nucleated RBC 0.00 (0.00-0.00) K/mm3 Nucleated RBC % 0.0 (0-0.0) % Sodium 140 (136-145) mmol/L Potassium 3.9 (3.5-5.1) mmol/L Chloride 103 (98-108) mmol/L Carbon Dioxide 24 (21-32) mmol/L Anion Gap 13 H (4-12) mmol/L BUN 12 (7-18) mg/dL Creatinine 1.24 H (0.55-1.02) mg/dL Estim Creat Clear Calc 33 ml/min Estimated GFR 42 L (59 - ) Glucose 119 H (70-99) mg/dL Calculated Osmolality 290 (285-295) mOsm/kg Calcium 9.2 (8.5-10.1) mg/dL Total Bilirubin 0.6 (0.00-1.00) mg/dL AST 32 (15-37) U/L ALT 16 (14-59) U/L Alkaline Phosphatase 99 (46-116) U/L Total Protein 6.8 (6.4-8.2) g/dL Albumin 3.2 L (3.4-5.0) g/dL Lipase 26 (16-77) U/L Urine Color Light yellow (Yellow) Urine Appearance Clear (Clear) Urine pH 6.5 (5.0-8.0) Ur Specific [place] <= 1.005 L (1.010-1.020) Urine Protein Negative (Negative) Urine Glucose (UA) Negative (Negative) Urine Ketones Trace H (Negative) Ur Blood (Man) 1+ H (Negative) Urine Nitrate Negative (Negative) Urine Bilirubin Negative (Negative) Urine Urobilinogen 0.2 (0.2-1.0) mg/dL Leukocyte Esterase Rfl 1+ H (Negative) AZEEM/UL Urine RBC 6-10 H (0-2) /hpf Urine WBC 7-9 H (0-3) /hpf Ur Squamous Epith Cells Occasional (Few) /hpf Urine Bacteria 3+ H (None) /hpf Imaging Data Radiologist's impression: Impressions Abdomen/Pelvis CT 08/30/24 17:53 IMPRESSION: 1. No evidence of appendicitis, diverticulitis or intestinal obstruction. Critical Care Time Critical Care Time Critical Care Time: No Discharge Plan Discharge Clinical Impression: Nausea, Urinary tract infection Patient Disposition: Home, Self-Care Condition: Stable Instructions: Urinary Tract Infection in Women (DC), Acute Nausea and Vomiting (ED), Weakness (ED) Additional Instructions: RETURN IF SYMPTOMS ARE WORSENING , SEE HER FAMILY PHYSICIAN TOMORROW,, TAKE TYLENOL NEEDED FOR ACHES AND PAIN, CONTINUE HOME MEDICATIONS. Prescriptions: New ondansetron 4 mg tablet,disintegrating 4 mg PO Q4H Qty: 10 0RF Rx Instructions: 1st dose 1-2 hr before radiation nitrofurantoin monohyd/m-cryst [Macrobid] 100 mg capsule 100 mg PO Q12H 5 Days Qty: 10 0RF Rx Instructions: must administer with a meal/food No Action Brilinta 60 mg tablet 60 mg PO Q12H albuterol sulfate 90 mcg/actuation HFA aerosol inhaler See Rx Instructions .ROUTE .COMPLEX Qty: 8.5 5RF Dose Instruction: INHALE 1 PUFF EVERY 4 HOURS NEEDED SHORTNESS OF BREATH OR WHEEZING Rx Instructions: INHALE 1 PUFF EVERY 4 HOURS NEEDED SHORTNESS OF BREATH OR WHEEZING aspirin 81 mg capsule 81 mg PO DAILY Qty: 90 0RF (DME) BreatheRite MDI Spacer Spacer See Rx Instructions .Route Qty: 1 0RF Rx Instructions: As directed multivitamin Tablet 1 tablet PO DAILY nitroglycerin 0.4 mg tablet, sublingual 0.4 mg sublingual Q5M PRN (Reason: chest pain) Qty: 100 0RF Rx Instructions: do not exceed 3 doses per episode nifedipine 30 mg tablet extended release 24hr 30 mg PO DAILY Qty: 90 3RF Rx Instructions: TAKE ONE TABLET BY MOUTH EVERY DAY Breztri Aerosphere 160-9-4.8 mcg/actuation HFA aerosol inhaler 2 inh inhalation BID Qty: 10.7 0RF gabapentin 300 mg capsule See Rx Instructions .ROUTE .COMPLEX Qty: 270 0RF Dose Instruction: TAKE 1 CAPSULE BY MOUTH THREE TIMES DAILY Rx Instructions: TAKE 1 CAPSULE BY MOUTH THREE TIMES DAILY atorvastatin 80 mg tablet See Rx Instructions .ROUTE .COMPLEX Qty: 90 0RF Dose Instruction: Take 1 tablet by mouth once daily Rx Instructions: Take 1 tablet by mouth once daily valsartan 160 mg tablet See Rx Instructions .ROUTE .COMPLEX Qty: 90 0RF Dose Instruction: Take 1 tablet by mouth once daily Rx Instructions: Take 1 tablet by mouth once daily ropinirole 1 mg tablet See Rx Instructions .ROUTE .COMPLEX Qty: 90 0RF Dose Instruction: Take 1 tablet by mouth once daily Rx Instructions: Take 1 tablet by mouth once daily oxybutynin chloride 5 mg tablet extended release 24hr See Rx Instructions .ROUTE .COMPLEX Qty: 90 0RF Dose Instruction: Take 1 tablet by mouth once daily Rx Instructions: Take 1 tablet by mouth once daily metoprolol succinate 100 mg tablet extended release 24 hr See Rx Instructions .ROUTE .COMPLEX Qty: 90 0RF Dose Instruction: Take 1 tablet by mouth once daily Rx Instructions: Take 1 tablet by mouth once daily Follow-up/Referrals: Edward Acharya, [Primary Care Provider] -
--- NOTE | 2024-08-30 16:35 | ECG_ITS ---
Test Date: 2024-08-30 16:53:00 Measurements Intervals [place] Rate: 60 P: 60 FL: 163 QRS: 38 QRSD: 89 T: 75 QT: 428 QTc: 430 Interpretive Statements SINUS RHYTHM NONSPECIFIC T-WAVE ABNORMALITY Compared to ECG 08/12/2024 13:34:55 NO SIGNIFICANT CHANGES Electronically Signed On 08-31-2024 09:38:02 CDT by Mk Talley M.D.
[2024-08-30 16:54] LABS: Basophils Absolute Auto 0.03 K/mm3 (0.00-0.10); Basophils Percent Auto 0.6 % (0.0-1.0); Hemoglobin 10.8 g/dL (11.7-13.8); Immature Granulocyte Absolute 0.02 K/mm3 (0.00-0.00); Immature Granulocyte Percent A 0.4 % (0.0-0.0); Lymphocytes Absolute Auto 1.63 K/mm3 (1.10-4.50); Lymphocytes Percent Auto 30.6 % (18.0-42.0); Mean Corpuscular HGB Conc 33.8 g/dL (32-36); Mean Corpuscular Hemoglobin 32.2 pg (27.0-31.0); Mean Corpuscular Volume 95.5 fL (78.0-102.0); Mean Platelet Volume 9.7 fl (9.2-11.8); Monocytes Absolute Auto 0.49 K/mm3 (0.10-0.90); Monocytes Percent Auto 9.2 % (2.0-11.0); Neutrophils Absolute Auto 3.15 K/mm3 (1.70-7.20); Neutrophils Percent Auto 59.2 % (50.0-70.0); Platelet Count Result 228 K/mm3 (150-420); Red Blood Count 3.35 M/mm3 (4.20-5.40); Red Cell Distribution Width 13.8 % (11.6-14.4); White Blood Count 5.3 K/mm3 (4.8-10.8)
[2024-08-30] MEDS: SODIUM CHLORIDE 0.9% IV 1,000 ML 999 ML IV CONT (16:56)
[2024-08-30] MEDS: ONDANSETRON INJ 4 MG/2 ML VIAL 8 MG IV PUSH (17:09)
[2024-08-30 17:10] LABS: Alanine Aminotransferase 16 U/L (14-59); Albumin Level 3.2 g/dL (3.4-5.0); Alkaline Phosphatase 99 U/L (46-116); Anion Gap 13 mmol/L (4-12); Aspartate Amino Transferase 32 U/L (15-37); Bilirubin,Total 0.6 mg/dL (0.00-1.00); Blood Urea Nitrogen 12 mg/dL (7-18); Calcium 9.2 mg/dL (8.5-10.1); Carbon Dioxide 24 mmol/L (21-32); Chloride 103 mmol/L (98-108); Estimated CRCL calculation 33 ml/min; Estimated Glomerular Filt Rate 42; Glucose 119 mg/dL (70-99); Lipase 26 U/L (16-77); Osmolality Calculated 290 mOsm/kg (285-295); Potassium 3.9 mmol/L (3.5-5.1); Sodium 140 mmol/L (136-145); Total Protein 6.8 g/dL (6.4-8.2)
--- NOTE | 2024-08-30 17:39 | PC.NURSE ---
FAMILY AT BEDSIDE. PT IS IN RADIOLOGY AT THIS TIME.
[2024-08-30 18:10] LABS: Add Urine Microscopic? YES; Appearance Urine Clear (Clear); Bilirubin Urine Negative (Negative); Blood Urine 1+ (Negative); Color Urine Light Yellow (Yellow); Glucose Urine UA Negative (Negative); Ketones Urine Trace (Negative); Leukocyte Esterase Ur 1+ LEU/UL (Negative); Nitrate Urine Negative (Negative); Protein Urine Negative (Negative); Specific Grav Ur <= 1.005 (1.010-1.020); Urobilinogen Urine 0.2 mg/dL (0.2-1.0); pH Urine 6.5 (5.0-8.0)
[2024-08-30 18:16] LABS: Bacteria Urine 3+ /hpf; Squamous Epithelial Cell Urine Occasional /hpf (Few)
--- NOTE | 2024-08-30 18:39 | PC.NURSE ---
PT IS LYING ON STRETCHER TEXTING ON CELL PHONE WITHOUT DISTRESS. FAMILY HAS LEFT. PT DENIES ANY NEEDS OR COMPLAINTS, HAS HAD WARM BLANKETS PROVIDED. VSS PER MONITOR. PT IS AWAITING RESULTS AND ERP DECISION AT THIS TIME. NAD NOTED. WILL CONTINUE TO MONITOR.
[2024-08-30] MEDS: NITROFURANTOIN MONOHYD MACROCR 100 MG CAP PO (19:21)
[2024-08-30] MEDS: LORazepam INJ (*CRX) 2 MG/ML VIAL 1 MG IV PUSH (19:22)
== END 2024-08-30 19:28 | disposition home or self-care (01) ==
PROVIDERS: Emergency Provider Emergency Medicine; PCP Family Medicine
DX: N39.0 Urinary tract infection, site not specified (principal); R11.0 Nausea; E78.5 Hyperlipidemia, unspecified; I10 Essential (primary) hypertension; E11.9 Type 2 diabetes mellitus without complications; Z86.73 Personal history of transient ischemic attack (TIA), and cerebral infarction without residual deficits
CPT/HCPCS: 36415; 74177; 80053; 81001; 83690; 85025; 87086; 93005; 96361; 96374; 96375; 99284; A9270; J2060; J2405; J7030; Q9967

== ENCOUNTER 2024-12-28 18:09 | Emergency (ER) | payer MEDICARE, SELFPAY ==
[2024-12-28] VITALS (21 sets, daily range): BP systolic 103–168; BP diastolic 46–126; PULSE 119–138; RESP 18–45; TEMP 36.4; O2SAT 89–100
--- NOTE | ~2024-12-28 | CT_ITS ---
EXAMINATION: CT cervical spine wo con DATE: 12/28/2024 19:05 INDICATION: fall TECHNIQUE: Computed tomography (CT) of the cervical spine was performed without intravenous contrast. Automated exposure control and iterative reconstruction technique were employed. The dose-length pro duct was 353.01 mGy-cm. COMPARISON: 01/14/2018. FINDINGS: Vertebral Body Alignment: Intact. Stable trace anterolisthesis at C3-4. Mild reversal of the normal c ervical lordosis. Craniocervical and atlantoaxial alignment: Moderate degenerative change. Alignment intact. Osseous structures/fracture: No evidence of a lytic or blastic process in the visualized spine. No e vidence of acute fracture. Stable mild height loss at C4-C6. Cervical soft tissues: The paraspinal soft tissues planes are maintained. Mild biapical pleural scarr ing and septal thickening. Degenerative changes: Multilevel degenerative disc disease and facet arthropathy. Multilevel severe b ilateral neural foraminal narrowing secondary to degenerative changes. No severe central canal narrow ing. IMPRESSION: No acute fracture or traumatic malalignment in the cervical spine. Reviewed, dictated and finalized at location K. OL ADMINISTRATOR
--- NOTE | ~2024-12-28 | CT_ITS ---
EXAMINATION: CTA chest PE protocol DATE: 12/28/2024 22:10 INDICATION: elev dimer/cp TECHNIQUE: Computed tomography angiography (CTA) of the chest was performed with 100 mL Omnipaque-350 intravenous contrast timed to evaluate the pulmonary arteries. Coronal maximum intensity projection 3D-reconstructions were created by the technologist. The dose-length product (DLP) was 497.06 mGy-cm. Automated exposure control and iterative reconstruction technique were employed. COMPARISON: None. FINDINGS: Lung parenchyma and airways: Motion artifact. Mild septal thickening. Mild patchy groundglass opaciti es.. Pleura: Unremarkable. Thoracic inlet, axillae and chest wall: Unremarkable. Thoracic aorta: No significant dilation. No dissection. Mild aortic calcification. Mediastinum: Normal. Heart and pericardium: Mild cardiomegaly. No pericardial effusion. Coronary artery calcifications: Moderate. Upper abdomen: No significant finding. Bones: No acute osseous finding. Pulmonary arteries: Study quality: Study is significantly limited by beam hardening from arm down pos itioning/body habitus and respiratory motion artifact. Subsegmental and segmental pulmonary arteries are not adequately visualized. No central pulmonary emboli detected. IMPRESSION: Inadequate visualization of the segmental and subsegmental pulmonary arteries due to artifacts descri bed above. No CT evidence of acute central pulmonary embolus. Mild interstitial edema. Reviewed, dictated and finalized at location K. GN ENGINEER MARINE EQUIPMENT IMPRESSION: Inadequate visualization of the segmental and subsegmental pulmonary arteries d ue to artifacts described above. No CT evidence of acute central pulmonary embo israel. Mild interstitial edema.
--- NOTE | ~2024-12-28 | XR_ITS ---
EXAM: XR knee RT min 4V DATE: 12/28/2024 19:06 HISTORY: fall . COMPARISON: 10/09/2015. FINDINGS: Osteopenia. No fracture or dislocation. No lytic or blastic lesion. Moderate tricompartmen evangelist osteoarthritis. No erosion or periosteal change. Soft tissues within normal limits. IMPRESSION: No acute osseous finding in the right knee. Reviewed, dictated and finalized at location K. DRY EQUIPMENT MECHANIC
--- NOTE | ~2024-12-28 | XR_ITS ---
EXAMINATION: XR chest 1V portable Exam Date/Time: 12/28/2024 18:31 TEXTILE TECHNICAL OFFICER HISTORY: fall Comparison: 01/28/2018. RESULT: Lines, tubes, and devices: None. Lungs and pleura: Examination somewhat limited by portable technique, body habitus, low volumes with crowding, and overlying EKG wires. No focal consolidation, pleural effusion, or pneumothorax.. Cardiomediastinal silhouette: Stable. Other: No acute osseous or upper abdominal finding. Severe bilateral glenohumeral osteoarthritis. IMPRESSION: No acute cardiopulmonary process. Reviewed, dictated and finalized at location K. ILE TECHNICAL OFFICER
--- NOTE | ~2024-12-28 | XR_ITS ---
EXAM: XR knee LT min 4V DATE: 12/28/2024 19:06 HISTORY: fall . COMPARISON: None available. FINDINGS: Osteopenia. No fracture or dislocation. No lytic or blastic lesion. Severe tricompartmenta l osteoarthritis. Small joint effusion No erosion or periosteal change. Soft tissues within normal li mits. IMPRESSION: No acute osseous finding in the left knee. Reviewed, dictated and finalized at location K. AGATOR
--- NOTE | ~2024-12-28 | CT_ITS ---
EXAMINATION: CT brain wo con DATE: 12/28/2024 19:06 INDICATION: fall . TECHNIQUE: Computed tomography (CT) of the head was performed without intravenous contrast. The mA wa s adjusted according to patient size. Iterative reconstruction technique was employed. The dose-lengt h product was 681.00 mGy-cm. COMPARISON: 08/12/2024. FINDINGS: No acute intracranial hemorrhage or extra-axial fluid collection. No hydrocephalus, mass, or herniation. No acute ischemic infarct. Unremarkable dural venous sinus attenuation. No acute osseous abnormality. Chronic volume loss with mucosal thickening and a small retention cyst/polyp in the right maxillary s inus, the remaining aerated spaces are clear. Mild atrophy and chronic white matter change. Atherosclerotic intracranial calcification. Bilateral l ens replacements. Old left basal ganglia and periventricular infarct. IMPRESSION: No acute intracranial process. Reviewed, dictated and finalized at location K. AINABLE SYSTEMS ANALYST
--- NOTE | 2024-12-28 18:23 | ED_ITS ---
HPI - Fall General Chief Complaint: Fall Stated Complaint: fall Time Seen by Provider: 12/28/24 18:22 Source: patient and EMS Mode of arrival: EMS Limitations: no limitations History of Present Illness HPI Narrative: Patient is a 74-year-old female who lives alone but has a daughter keep an eye on her was found by the daughter today after 24 hours of being on the floor near the bathroom. Patient was using the bathroom had some loose stools and went to move from the toilet and fell to the floor close by and could not get off the floor. She has bilateral knee pain. She is on Brilinta. She did hit her head. No definite loss of consciousness history. No definite seizure history. No definite chest pain or shortness of breath history. Unclear why the patient has fallen. Possibly vasovagal after loose stools. Blood sugar 154 in the ER. patient has many bruises around her body on examination in various stages of healing. Patient says she injured herself often. No major concern for abuse. MD complaint: fall Onset (ago): day(s) ( 24 hours /1 day) Fall from: chair ( off the toilet/ moving from the toilet) Fall witnessed: no Place fall occurred: home Loss of consciousness: unsure Prolonged down time: yes, hour(s) ( 24 hours) and day(s) ( 1 day) Symptoms prior to fall: dizziness Context: tripped/slipped ( possibly versus vasovagal after loose stools) Location of injury: head and other ( bilateral knees) Severity: mild Severity scale (1-10): 2 Quality: dull and aching Associated symptoms (after fall): neck pain, unable to walk and other ( bilateral knee pain) Related Data Home Medications ?Medication ?Instructions ?Recorded ?Confirmed ?Last Taken ?Type multivitamin 1 tablet PO DAILY 06/05/22 08/31/24 06/04/22 12:00 History ticagrelor 60 mg tablet (Brilinta) 60 mg PO Q12H 10/21/23 08/31/24 Unknown History Allergies Allergy/AdvReac Type Severity Reaction Status Date / Time prochlorperazine (Compazine) Allergy Intermediate Itching Verified 12/28/24 18:26 meperidine (Demerol) AdvReac Intermediate Other Verified 12/28/24 18:26 Review of Systems 2 Review of Systems: All systems reviewed & are unremarkable except as noted in HPI and below Constitutional: Constitutional: Reports no additional constitutional complaints Eyes: Eyes: Reports no additional eye complaints ENT: Reports system reviewed and no additional complaints, except as documented Cardiovascular: Cardiovascular: Reports no additional cardiovascular complaints Respiratory: Respiratory: Reports no additional respiratory complaints Gastrointestinal: Gastrointestinal: Reports no additional gastrointestinal complaints Genitourinary: Genitourinary: Reports no additional female genitourinary complaints Musculoskeletal: Musculoskeletal: Reports no additional musculoskeletal complaints Integumentary/Breasts: Skin/Breast: Reports system reviewed and no additional complaints, except as docu Neurologic: Reports system reviewed and no additional complaints, except as documented Psychiatric: Psychiatric: Reports no additional psychiatric complaints Endocrine: Endocrine: Reports no additional endocrine complaints Hematologic/Lymphatic: Hematologic/Lymphatic: Reports no additional hematologic/lymphatic complaints Allergic/Immunologic: Allergic/Immunologic: Reports no additional allergic/immunologic complaints PMFSH Past Medical History Medical History Breast pain, right Restless legs syndrome (RLS) CVA (cerebral vascular accident) Type 2 diabetes mellitus Urinary incontinence Chronic GERD Hypertension Hyperlipidemia Surgical History Surgical History H/O dilation and curettage Family History Family History Father Family history of congenital heart disease Family history of malignant neoplasm Mother Family history of arthritis Mother Family history of type 2 diabetes mellitus Other Acute myocardial infarction Social History Social History Smoking status: Never smoker Alcohol intake: current Alcohol use details: rare social use Substance use: never Substance use type: does not use and prescription drug Living arrangements: alone Spiritual care concerns: No Exam 2 Const: General: ill appearing ( Dehydrated and pale) acutely Nutritional Appearance: well nourished Orientation/consciousness: patient oriented x3 Limitations: no limitations HENMT: Head: normal to inspection Ears: external ears normal F jana/Nose/Sinus: Normal external nose present Face and sinus: normal facial exam Mouth: Yes Normal oral and palatal mucosa present Teeth and gingiva: dentition normal Throat: posterior oropharynx normal Eyes: Conjunctivae: conjunctivae normal Pupils: Equal, round and reactive pupils present EOM: EOMs intact bilaterally Neck: Neck: normal visual inspection Chest: Chest palpation & inspection: normal inspection of the chest Resp: Effort & Inspection: normal respiratory effort and not labored A uscultation: clear to auscultation bilaterally and no crackles Cardio: Rate: regular rate Rhythm: regular rhythm Heart sounds: no murmurs GI: Inspection: non-distended GI Palp: Yes Soft to palpation and No Tenderness to palpation present (GI) Auscultation: normal bowel sounds : General: Yes bladder normal to palpation Back/Spine/Pelvis: Back: no CVA tenderness Skin: General skin exam: No normal color and pallor Rashes: no rashes W ounds: no wounds Other: multiple ecchymosis around the body especially the legs of healing stages that are various Neuro: General: patient oriented x3 Cranial nerves: Yes Nystagmus not present Speech: normal speech Gait exam (Neuro): gait abnormal Other: unable to assess walking at this time but she can move both of her legs equally GCS is 15, fast exam is negative, NIH score is 0 at this time Extrem: General: abnormal to inspection Other: bilateral knee ecchymosis of newer variety Psych: Mental Status: mental status grossly normal Affect: normal affect Attitude: cooperative Course Vital Signs Vital signs: Vital Signs Oxygen Delivery Room Air 12/28/24 18:09 Temperature 36.4 C 12/28/24 18:10 Pulse Rate 123 H 12/28/24 20:04 Respiratory Rate 23 H 12/28/24 20:04 Blood Pressure 168/77 H 12/28/24 20:04 Pulse Oximetry 99 12/28/24 20:04 Oxygen Delivery Room Air 12/28/24 18:10 MDM - Fall MDM Narrative Medical decision making narrative: patient is a 74-year-old female with a ground level fall 24 hours ago. She has been on the floor since that time and found by the daughter today. EMS brought patient to ER. Multiple injuries and complaints. We will do a complete workup at this time. IV fluids. Lab Data Attestation: I reviewed the patient's lab results. 12/28/24 19:06 12/28/24 21:13 Labs: Lab Results 12/28/24 12/28/24 12/28/24 Range/Units 18:32 19:06 20:56 WBC 12.2 H (4.8-10.8) K/mm3 RBC 3.53 L (4.20-5.40) M/mm3 Hgb 11.0 L (11.7-13.8) g/dL Hct 34.3 L (35.0-42.0) % MCV 97.2 (78.0-102.0) fL MCH 31.2 H (27.0-31.0) pg MCHC 32.1 (32-36) g/dL RDW 13.4 (11.6-14.4) % Plt Count 270 (150-420) K/mm3 MPV 9.3 (9.2-11.8) fl Immature Gran % (Auto) 0.2 H (0.0-0.0) % Neut % (Auto) 83.8 H (50.0-70.0) % Lymph % (Auto) 7.2 L (18.0-42.0) % Turner % (Auto) 7.8 (2.0-11.0) % Eos % (Auto) 0.8 L (1.0-6.0) % Baso % (Auto) 0.2 (0.0-1.0) % Lymph # (Auto) 0.88 L (1.10-4.50) K/mm3 Turner # (Auto) 0.95 H (0.10-0.90) K/mm3 Eos # (Auto) 0.10 (0.02-0.50) K/mm3 Baso # (Auto) 0.02 (0.00-0.10) K/mm3 Abs Immat Gran (auto) 0.03 H (0.00-0.00) K/mm3 Absolute Neuts (auto) 10.22 H (1.70-7.20) K/mm3 Absolute Nucleated RBC 0.00 (0.00-0.00) K/mm3 Nucleated RBC % 0.0 (0-0.0) % D-Dimer 1.56 H* (0.19-0.50) mg/L Sodium 142 (136-145) mmol/L Potassium 4.3 (3.5-5.1) mmol/L Chloride 104 (98-108) mmol/L Carbon Dioxide 19 L (21-32) mmol/L Anion Gap 19 H (4-12) mmol/L BUN 31 H (7-18) mg/dL Creatinine 1.89 H (0.55-1.02) mg/dL Estim Creat Clear Calc 22 ml/min Estimated GFR 26 L (59 - ) Glucose 148 H (70-99) mg/dL POC Capillary Glucose 154 H (65-105) mg/dl Calculated Osmolality 303 H (285-295) mOsm/kg Lactic Acid 3.0 H (0.4-2.0) mmol/L Calcium 9.3 (8.5-10.1) mg/dL Total Bilirubin 1.0 (0.00-1.00) mg/dL AST 132 H (15-37) U/L ALT 40 (14-59) U/L Alkaline Phosphatase 107 (46-116) U/L Total Creatine Kinase 4657 H (26-192) U/L Troponin I 96.5 H* (0.00-60.4) ng/L NT-Pro-B Natriuret Pep 1242 H (0-450) pg/mL Total Protein 7.5 (6.4-8.2) g/dL Albumin 3.7 (3.4-5.0) g/dL Urine Color Light yellow (Yellow) Urine Appearance Clear (Clear) Urine pH 5.5 (5.0-8.0) Ur Specific Wallace >= 1.030 H (1.010-1.020) Urine Protein 1+ H (Negative) Urine Glucose (UA) Negative (Negative) Urine Ketones 2+ H (Negative) Ur Blood (Man) 3+ H (Negative) Urine Nitrate Positive H (Negative) Urine Bilirubin Negative (Negative) Urine Urobilinogen 0.2 (0.2-1.0) mg/dL Leukocyte Esterase Rfl 1+ H (Negative) AZEEM/UL Urine RBC 6-10 H (0-2) /hpf Urine WBC 21-30 H (0-3) /hpf Ur Squamous Epith Cells Rare (Few) /hpf Amorphous Sediment Few H (None) Urine Bacteria 2+ H (None) /hpf Influenza A (RT-PCR) Negative (Negative) Influenza B (RT-PCR) Negative (Negative) RSV (RT-PCR) Negative (Negative) SARS-CoV-2 RNA (RT-PCR) Negative (Negative) 12/28/24 Range/Units 21:13 WBC (4.8-10.8) K/mm3 RBC (4.20-5.40) M/mm3 Hgb (11.7-13.8) g/dL Hct (35.0-42.0) % MCV (78.0-102.0) fL MCH (27.0-31.0) pg MCHC (32-36) g/dL RDW (11.6-14.4) % Plt Count (150-420) K/mm3 MPV (9.2-11.8) fl Immature Gran % (Auto) (0.0-0.0) % Neut % (Auto) (50.0-70.0) % Lymph % (Auto) (18.0-42.0) % Turner % (Auto) (2.0-11.0) % Eos % (Auto) (1.0-6.0) % Baso % (Auto) (0.0-1.0) % Lymph # (Auto) (1.10-4.50) K/mm3 Turner # (Auto) (0.10-0.90) K/mm3 Eos # (Auto) (0.02-0.50) K/mm3 Baso # (Auto) (0.00-0.10) K/mm3 Abs Immat Gran (auto) (0.00-0.00) K/mm3 Absolute Neuts (auto) (1.70-7.20) K/mm3 Absolute Nucleated RBC (0.00-0.00) K/mm3 Nucleated RBC % (0-0.0) % D-Dimer (0.19-0.50) mg/L Sodium 143 (136-145) mmol/L Potassium 3.8 (3.5-5.1) mmol/L Chloride 106 (98-108) mmol/L Carbon Dioxide 17 L (21-32) mmol/L Anion Gap 20 H (4-12) mmol/L BUN 28 H (7-18) mg/dL Creatinine 1.67 H (0.55-1.02) mg/dL Estim Creat Clear Calc 24 ml/min Estimated GFR 30 L (59 - ) Glucose 143 H (70-99) mg/dL POC Capillary Glucose (65-105) mg/dl Calculated Osmolality 303 H (285-295) mOsm/kg Lactic Acid 2.5 H (0.4-2.0) mmol/L Calcium 8.4 L (8.5-10.1) mg/dL Total Bilirubin (0.00-1.00) mg/dL AST (15-37) U/L ALT (14-59) U/L Alkaline Phosphatase (46-116) U/L Total Creatine Kinase 4375 H (26-192) U/L Troponin I 130.0 H* (0.00-60.4) ng/L NT-Pro-B Natriuret Pep (0-450) pg/mL Total Protein (6.4-8.2) g/dL Albumin (3.4-5.0) g/dL Urine Color (Yellow) Urine Appearance (Clear) Urine pH (5.0-8.0) Ur Specific Wallace (1.010-1.020) Urine Protein (Negative) Urine Glucose (UA) (Negative) Urine Ketones (Negative) Ur Blood (Man) (Negative) Urine Nitrate (Negative) Urine Bilirubin (Negative) Urine Urobilinogen (0.2-1.0) mg/dL Leukocyte Esterase Rfl (Negative) AZEEM/UL Urine RBC (0-2) /hpf Urine WBC (0-3) /hpf Ur Squamous Epith Cells (Few) /hpf Amorphous Sediment (None) Urine Bacteria (None) /hpf Influenza A (RT-PCR) (Negative) Influenza B (RT-PCR) (Negative) RSV (RT-PCR) (Negative) SARS-CoV-2 RNA (RT-PCR) (Negative) Imaging Data Attestation: I personally reviewed and interpreted this imaging study as follows: Radiologist's impression: Chest x-rays negative for acute process CT scan of the head and neck are negative for acute process x-ray bilateral knees are negative for acute process CTA of the chest shows IMPRESSION: Inadequate visualization of the segmental and subsegmental pulmonary arteries due to artifacts described above. No CT evidence of acute central pulmonary embolus. Mild interstitial edema. ECG Data EKG #1: Attestation: I personally reviewed and interpreted this ECG as follows: ECG completion date: 12/28/24 ECG completion time: 19:19 EKG Interpretation: tachycardia, sinus rhythm, no ectopy, non-specific ST changes, normal QRS, normal QT and NL axis Discharge Plan Discharge Clinical Impression: Sepsis secondary to UTI, Elevated troponin, JOSEPH (acute kidney injury), Acute dehydration, Elevated brain natriuretic peptide (BNP) level, Increased anion gap metabolic acidosis Rhabdomyolysis Qualifiers: Rhabdomyolysis type: traumatic Encounter type: initial encounter Qualified Code(s): T79.6XXA - Traumatic ischemia of muscle, initial encounter Fall Qualifiers: Encounter type: initial encounter Qualified Code(s): W19.XXXA - Unspecified fall, initial encounter Patient Disposition: Acute Care Hospital Condition: Improved Patient Language: Peruvian Prescriptions: No Action Brilinta 60 mg tablet 60 mg PO Q12H albuterol sulfate 90 mcg/actuation HFA aerosol inhaler See Rx Instructions .ROUTE .COMPLEX Qty: 8.5 5RF Dose Instruction: INHALE 1 PUFF EVERY 4 HOURS NEEDED SHORTNESS OF BREATH OR WHEEZING Rx Instructions: INHALE 1 PUFF EVERY 4 HOURS NEEDED SHORTNESS OF BREATH OR WHEEZING aspirin 81 mg capsule 81 mg PO DAILY Qty: 90 0RF (DME) BreatheRite MDI Spacer Spacer See Rx Instructions .Route Qty: 1 0RF Rx Instructions: As directed ondansetron 4 mg tablet,disintegrating 4 mg PO Q4H Qty: 30 0RF Rx Instructions: 1st dose 1-2 hr before radiation multivitamin Tablet 1 tablet PO DAILY nitroglycerin 0.4 mg tablet, sublingual 0.4 mg sublingual Q5M PRN (Reason: chest pain) Qty: 100 0RF Rx Instructions: do not exceed 3 doses per episode Breztri Aerosphere 160-9-4.8 mcg/actuation HFA aerosol inhaler 2 inh inhalation BID Qty: 10.7 0RF gabapentin 300 mg capsule See Rx Instructions .ROUTE .COMPLEX Qty: 270 0RF Dose Instruction: TAKE 1 CAPSULE BY MOUTH THREE TIMES DAILY Rx Instructions: TAKE 1 CAPSULE BY MOUTH THREE TIMES DAILY valsartan 160 mg tablet See Rx Instructions .ROUTE .COMPLEX Qty: 90 0RF Dose Instruction: Take 1 tablet by mouth once daily Rx Instructions: Take 1 tablet by mouth once daily ropinirole 1 mg tablet See Rx Instructions .ROUTE .COMPLEX Qty: 90 0RF Dose Instruction: Take 1 tablet by mouth once daily Rx Instructions: Take 1 tablet by mouth once daily oxybutynin chloride 5 mg tablet extended release 24hr See Rx Instructions .ROUTE .COMPLEX Qty: 90 0RF Dose Instruction: Take 1 tablet by mouth once daily Rx Instructions: Take 1 tablet by mouth once daily nifedipine 30 mg tablet extended release 24hr 30 mg PO DAILY Qty: 90 3RF metoprolol succinate 100 mg tablet extended release 24 hr See Rx Instructions .ROUTE .COMPLEX Qty: 90 0RF Dose Instruction: Take 1 tablet by mouth once daily Rx Instructions: Take 1 tablet by mouth once daily escitalopram oxalate 10 mg tablet See Rx Instructions .ROUTE .COMPLEX Qty: 90 0RF Dose Instruction: TAKE 1 TABLET BY MOUTH EVERY DAY Rx Instructions: TAKE 1 TABLET BY MOUTH EVERY DAY atorvastatin 80 mg tablet See Rx Instructions .ROUTE .COMPLEX Qty: 90 0RF Dose Instruction: Take 1 tablet by mouth once daily Rx Instructions: Take 1 tablet by mouth once daily Follow-up/Referrals: Edward Acharya DO [Primary Care Provider] - Time of Disposition: 22:26
--- NOTE | 2024-12-28 18:28 | ECG_ITS ---
Test Date: 2024-12-28 19:05:46 Measurements Intervals [place] Rate: 126 P: 69 TN: 148 QRS: 1 QRSD: 74 T: 87 QT: 336 QTc: 487 Interpretive Statements SINUS TACHYCARDIA CONSIDER INFERIOR INFARCT, AGE INDETERMINATE NONSPECIFIC ST & T-WAVE ABNORMALITY- ANTEROLAT/HIGH LAT LEADS BASELINE ARTIFACT- I, II, III, AVR, AVL, AVF, V1-V6 ABNORMAL ECG Compared to ECG 08/30/2024 16:53:00 HEART RATE HAS INCREASED Electronically Signed On 12-29-2024 07:16:43 NIGHT SHIFT SUPERVISOR by Caleb Matos D.O.
[2024-12-28 18:34] LABS: Glucose Point of Care 154 mg/dl (65-105)
--- OUTSIDE RECORDS SUMMARY | 2024-12-28 19:05 | XMS_ITS | CONTINUITY OF CARE DOCUMENT ---
Author Name elida marrero Address Unknown Organization [facility] Address [address] [place] [address] [address] [place] [address] Phone [phone] Care Team Providers Care Loader Operator/Ground Leader Name Role Phone Dominique Sands MD Unavailable [phone] TIMUR SIBLEY MD Unavailable PROBLEMS Condition Status Date Provider Notes CVA 09/2015 active Dominique Sands MD HTN active Dominique Sands MD Hypercholesterolemia active Dominique Sands MD GERD active Dominique Sands MD Cough due to TONY inhibitor active Dominique Sands MD ENCOUNTERS Date Type Provider Location Encounter Diagnosis - In-person encounter Office Visit Dominique Sands MD [place] [facility] CVA 09/2015HTNHypercho lesterolemiaGERDCo ugh due to TONY inhibitor VITAL SIGNS Date Observation Value Provider blood pressure, diastolic 72 mm[Hg] Mike Sands MD blood pressure, systolic 150 mm[Hg] John Sands MD pulse rate 77 /min Dominique Sands MD oxygen saturation, oximetry 98 % Dominique Sands MD respiratory rate E&M 20 /min Arti Sands MD Body Mass Index (Ratio) 31.83 kg/m2 Mariia Sands MD weight E&M 163 [lb_av] Dominique Sands MD height E&M 60 [in_i] Dominique Sands MD ALLERGIES No Known Drug Allergies HISTORY OF MEDICATION USE Medication Status Instructions Dates Provider Indications Com ments ASPIRIN 325 MG ORAL TABLET active ONE TAB. DAILY Dominique Sands MD HYDROCHLOROTHIAZIDE 25 MG ORAL TABLET active ONE TAB DAILY Dominique Sands MD ATORVASTATIN CALCIUM 40 MG ORAL TABLET active Dominique Sands MD OMEPRAZOLE 40 MG ORAL CAPSULE DELAYED RELEASE active Dominique Sands MD METOPROLOL SUCCINATE ER 100 MG ORAL TABLET EXTENDED RELEASE 24 HOUR active ONE TAB DAILY Dominique Sands MD NIFEDIPINE ER 30 MG ORAL TABLET EXTENDED RELEASE 24 HOUR active one tab. daily Dominique Sands MD SOCIAL HISTORY Date Observation Value Provider social history E&M S moking History: U nknown if patient has ever smoked. Dominique Sands MD smoking status Unknown if ever smoked John Sands MD social history reviewed E&M revi ewed - no changes required Dominique Sands MD INSURANCE PROVIDERS Payer name Policy type / Coverage type Ong red libertarian ID [employer] Commercial insurance compan y [id number] [place] [employer] Medicare [id number] TREATMENT PLAN Date Name Performer Cardiology:She still continues to have cough with a choking feeling and this may well be related to a post nasal drip. I leave further management of this to you. Dominique Sands MD Cardiology:Blood pre ssure control has improved. She continues on metoprolol succinate 100 mg once a day and Nifedipine XL 30 mg daily. Her renal arterial duplex showed mildly elevated velocities in the right renal artery. No intervention at present is indicated for this. Her echocardiogram shows a normal size and systolic function with an EF of 60-65% and mild mitral regurgitation. Will arrange for her to have an adenosine stress myoview. The EKG shows sinus rhythm with voltage criteria for LVH. Dominique Sands MD Cardiology:Satisfact ory recovery. She continues on aspirin once daily. Carotid dopplers were normal. Her CT scan did show evidence of an age indeterminate left basal ganglia lacunar infarction. Dominique Sands MD Cardiology:On atorvastatin. Mariia Sands MD Cardiology:On omeprazole. Christa Sands MD Date Name STR - Adenosine HISTORY OF PROCEDURES Procedure Date Procedure Name Provider Procedure Notes S tatus SNOMED-CT: 686907143 [id number] Current Medications Documented Dominique Sands MD completed SNOMED-CT: 343667509 Smoking Cessation Counseling Dominique Sands MD completed SNOMED-CT: 47301874 Physical Exam, Performed: Pulse Exam of Foot Dominique Sands MD completed
--- OUTSIDE RECORDS SUMMARY | 2024-12-28 19:05 | XMS_ITS | Clinical Summary ---
Author Organization [facility] Address [address] [place] [address] Care Team Providers Care Truck Dock Material Mover Name Role Phone Baljit Landon MD Primary Care Provider [phone] Active Problems Problem Noted Date Diagnosed Date Chronic kidney disease, stag e III (moderate) (CMS/HCC HHS/HCC) 09/13/2019 Other secondary hypertension 09/13/2019 Social History Tobacco Use Types Packs/Day Years Used Date Smoking Tobacco: Never Assessed Comments Unknown Sex and Gender Information Value Date Recorded Sex Assigned at Not on file Legal Sex Female 10:25 PM CDT Gender Identity Not on file Sexual Orientation Not on file Last Filed Vital Signs Vital Sign Reading Time Taken Comments Blood Pressure 156/72 09/13/2019 10:48 AM JAWBONE PULLER Pulse 79 09/13/2019 10:48 AM [employer]AWB[employer] PULLER Temperature - - Respiratory Rate - - Oxygen Saturation - - Inhaled Oxygen Concentration - - Weight 77.3 kg (170 lb 6.7 oz) 09/13/2019 10:48 AM JAWBONE PULLER Height 152.4 cm (5') 09/13/2019 10:48 AM JAWBONE PULLER Body Mass Index 33.28 09/13/2019 10:48 AM JAWBONE PULLER Plan of Treatment Health Maintenance Due Date Last Done Comments Colorectal Cancer Screening Colonoscopy (10 Years) 1949 Hepatitis C 1967 DTaP, Tdap and Td Vaccines ( 1 - Tdap) 1968 Zoster Vaccines (1 of 2) 1999 Annual Medicare Wellness Visit 2014 Dexa Scan (General) 2014 Pneumococcal Vaccine: 65+ Ye ars (1 of 1 - PCV) 2014 RSV Immunization or 60+ Years (1 - 1-dose 75+ series) 2024 COVID-19 Vaccine (2023-2 5 season) 2024 Influenza Adult (#1) 2024 Meningococcal B Vaccine Aged Out No l onger eligible based on patient's age to complete this topic Meningococcal Vaccine Aged Out No ruth yan eligible based on patient's age to complete this topic RSV Immunizations Under 20 Months Aged Out No longer eligible based on patient's age to complete this topic Insurance [id number] [id number] [place] [id number] [employer] Care Teams Truck Dock Material Mover Relationship Specialty Start Date End Date Baljit Landon MD [address] [place] [address] PCP - General FAMILY PRACTICE 09/08/19
--- OUTSIDE RECORDS SUMMARY | 2024-12-28 19:05 | XMS_ITS | Referral Summary ---
Author Organization [facility] [address] [place] [address] Care Team Providers Care Reception Name Role Phone Edward Acharya DO Primary Care Provider Allergies Active Allergy Reactions Criticality Noted Date Comments Prochlorperazine Itching Low 05/28/2022 Meperidine Mental status changes Low 05/28/2022 Medications metoprolol XL (TOPROL-XL) 100 mg 24 hr tablet Take 1 tablet (100 mg total) by mouth daily 2 Active valsartan (DIOVAN) 160 mg tablet Take 1 tablet (160 mg total) by mouth daily 2 Active NIFEdipine XL 30 mg 24 hr tablet Take 1 tablet (30 mg total) by mouth daily 2 Active gabapentin (NEURONTIN) 300 mg capsule Take 3 capsules (900 mg total) by mouth 3 (three) times a day 2 Active rOPINIRole (REQUIP) 1 mg tablet Take 1 tablet (1 mg total) by mouth nightly 2 Active oxybutynin XL (DITROPAN-XL) 5 mg 24 hr tablet Take 1 tablet (5 mg total) by mouth daily 2 Active atorvastatin (LIPITOR) 80 mg tablet Take 1 tablet (80 mg total) by mouth daily 2 Active albuterol HFA (PROVENTIL HFA,VENTOLIN HFA,PROAIR HFA) 90 mcg/actuation inhaler 2 Active multivitamin capsule Take 1 capsule by mouth daily Active aspirin 81 mg enteric coated tabletIndications:A bnormal result of other cardiovascular function study,Abnormal stress test,History of CVA (cerebrovascular accident) Take 1 tablet (81 mg total) by mouth daily 30 tablet 11 2 01/27/20 25 Active budesonide/glycopyr /formoterol (BREZTRI AEROSPHERE INHAL) Inhale Active ticagrelor (Brilinta) 60 mg tablet Take 1 tablet (60 mg total) by mouth 2 (two) times a day 180 tablet 3 4 Active nitroglycerin (NITROSTAT) 0.4 mg SL tabletIndications:a cute episode of anginal pain Place 1 tablet (0.4 mg total) under the tongue every 5 (five) minutes as needed for chest pain May repeat dose q 5 min, up to 3 doses total 25 tablet 2 4 08/06/20 25 Active Active Problems Problem Noted Date Diagnosed Date 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 08/23/2022 LEWIS (dyspnea on exertion) 05/28/2022 History of CVA (cerebrovascular accident) 2021 Abnormal stress test 05/28/2022 Hyperlipidemia associated with type 2 diabetes m ellitus 05/28/2022 Hypertension associated with stage 3 chronic kidney disease due to type 2 diabetes mellitus 05/28/2022 Abnormal result of other cardiovascular function study 05/28/2022 Other general symptoms and signs 05/28/2022 Social History Tobacco Use Types Packs/Day Years Used Date Smoking Tobacco: Never Smokeless Tobacco: Never Tobacco Cessation:Counseling Given: Not Answered Personal Safety Answer Date Recorded Getting School Help Needed Not on file 12/26 Comments Unknown Sex and Gender Information Value Date Recorded Sex Assigned at Not on file Legal Sex Female 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 Gender Identity Female 03/26/2022 3:44 PM CDT Sexual Orientation Straight 03/26/2022 3: 44 PM CDT Last Filed Vital Signs Vital Sign Reading Time Taken Comments Blood Pressure 122/60 08/06/2024 9:28 AM CDT Pulse 67 08/06/2024 9:28 AM CDT Temperature - - Respiratory Rate - - Oxygen Saturation 98% 08/06/2024 9:28 AM CDT Inhaled Oxygen Concentration - - Weight 78.9 kg (174 lb) 08/06/2024 9:28 AM CDT Height 152.4 cm (5') 08/06/2024 9:28 AM CDT Body Mass Index 33.98 08/06/2024 9:28 AM CDT Plan of Treatment Not on file Procedures Procedure Name Priority Date/Time Associated Diagnosis Comments POCT LIPID PANEL Routine 01/27/2024 10:5 7 AM CDT Coronary artery disease of seminole artery of seminole heart with stable angina pectoris (HCC) Hyperlipidemia associated with type 2 diabetes mellitus (HCC) from Last 3 Months or Most Recently Relevant to Health Maintenance Results * POCT lipid panel (01/27/2024 10:57 AM CDT) Cholesterol, POC 143 mg/dL HDL, POC 70 mg/dL Triglycerides, POC 136 mg/dL LDL Cholesterol POC 46 mg/dL Chol/HDL Ratio, POC 2.0 Non-HDL Cholesterol, POC 73 mg/dL Cholesterol Total, POC 143 mg/dL Capillary blood 01/27/2024 1 0:57 AM CDT Travis Gonzalez MD POINT OF CARE TEST ORDERA BLES Final Result from Last 3 Months or Most Recently Relevant to Health Maintenance Insurance MEDICARE COMMERCIAL GENERIC MEDICARE COMMERCIAL GENERIC Care Teams Reception Relationship Specialty Start Date End Date Edward Acharya DO [address] [place] [address] PCP - General Family Medicine 03/05/22
--- OUTSIDE RECORDS SUMMARY | 2024-12-28 19:05 | XMS_ITS | Clinical Summary ---
Author Organization [facility] [address] [place] [id number] Care Team Providers Care Wood Car Builder Name Role Phone Edward Acharya DO Primary [...] artery disease of n ative artery of kiowa tribe heart with stable angina pectoris 08/23/2022 LEWIS (dyspnea on exertion) 05/28/2022 History of CVA (cerebrovascular accident) 2021 Abnormal stress test 05/28/2022 Hyperlipidemia associated with type 2 diabetes m ellitus 05/28/2022 Hypertension associated with stage 3 chronic kidney disease due to type 2 diabetes mellitus 05/28/2022 Abnormal result of other cardiovascular function study 05/28/2022 Other general symptoms and signs 05/28/2022 Surgical History Surgery Date Site/Laterality Comments DILATION AND CURETTAGE OF UTERUS CATARACT EXTRACTION, BILATERAL Bilateral CORONARY ANGIOPLASTY WITH ST ENT PLACEMENT 11/03/2021 - 11/02/2022 Medical History Medical History Date Comments Hypertension Hyperlipidemia Diabetes mellitus (HCC) Acid indigestion Family History Medical History Relation Name Comments Heart disease Father Stroke Father Diabetes Mother Hypertension Mother Stroke Mother Relation Name Status Comments Father Mother Social History Tobacco Use Types Packs/Day Years Used Date Smoking Tobacco: Never Smokeless Tobacco: Never Tobacco Cessation:Counseling Given: Not Answered Personal Safety Answer Date Recorded Getting School Help Needed Not on file 12/26 Comments Unknown Sex and Gender Information Value Date Recorded Sex Assigned at Not on file 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 Gender Identity Female 03/26/2022 3:44 PM CDT Sexual Orientation Straight 03/26/2022 3: 44 PM CDT Obstetrics History Last Filed Vital Signs Vital Sign Reading [...] 08/06/2024 9:28 AM CDT Plan of Treatment Health Maintenance Due Date Last Done Comments Albumin Creatinine Ratio, Urine 1949 Colon Cancer Screening-Colonoscopy 1949 Depression Screening 1949 Fall Risk Assessment 1949 Hemoglobin A1C 1949 Hepatitis C Screening 1949 Osteoporosis Screening-Bone Density Scan 1949 eGFR 1949 Dilated Eye Exam 1949 Foot Exam 1949 DTaP/Tdap/Td Vaccine (1 - Tdap) 1960 Hepatitis B Screening 1967 Zoster Vaccine (1 of 2) 1999 Well Visit 65+ 2014 Pneumococcal vaccine 65+ (2 of 2 - PCV) 02/06/2023 02/06/2022 Influenza Vaccine (#1) 2024 , 08/09/2019, 06/29/2018, Additional history exists Lipid Panel 01/26/2025 01/27/2024, 02/11/2022, 02/06/2022 Procedures Procedure Name Priority Date/Time Associated Diagnosis Comments POCT LIPID PANEL Routine 01/27/2024 10:5 7 AM CDT Coronary artery disease of kiowa tribe artery of kiowa tribe heart with stable angina pectoris (HCC) Hyperlipidemia [...] Recently Relevant to Health Maintenance Insurance MEDICARE [facility] Address: [id number] [place] [address] COMMERCIAL GENERIC MEDICARE COMMERCIAL GENERIC Care Teams Wood Car Builder Relationship Specialty Start Date End Date Edward Acharya DO [address] [place] [address] PCP - General Family Medicine 03/05/22
[2024-12-28 19:09] LABS: Basophils Absolute Auto 0.02 K/mm3 (0.00-0.10); Basophils Percent Auto 0.2 % (0.0-1.0); Eosinophils Percent Auto 0.8 % (1.0-6.0); Hematocrit 34.3 % (35.0-42.0); Immature Granulocyte Absolute 0.03 K/mm3 (0.00-0.00); Immature Granulocyte Percent A 0.2 % (0.0-0.0); Lymphocytes Absolute Auto 0.88 K/mm3 (1.10-4.50); Lymphocytes Percent Auto 7.2 % (18.0-42.0); Mean Corpuscular HGB Conc 32.1 g/dL (32-36); Mean Corpuscular Hemoglobin 31.2 pg (27.0-31.0); Mean Corpuscular Volume 97.2 fL (78.0-102.0); Mean Platelet Volume 9.3 fl (9.2-11.8); Monocytes Absolute Auto 0.95 K/mm3 (0.10-0.90); Monocytes Percent Auto 7.8 % (2.0-11.0); Neutrophils Absolute Auto 10.22 K/mm3 (1.70-7.20); Neutrophils Percent Auto 83.8 % (50.0-70.0); Platelet Count Result 270 K/mm3 (150-420); Red Blood Count 3.53 M/mm3 (4.20-5.40); Red Cell Distribution Width 13.4 % (11.6-14.4); White Blood Count 12.2 K/mm3 (4.8-10.8)
[2024-12-28] MEDS: SODIUM CHLORIDE 0.9% IV 1,000 ML 999 ML IV CONT ×2 (19:09→19:40)
--- OUTSIDE RECORDS SUMMARY | 2024-12-28 19:11 | XMS_ITS | CONTINUITY OF CARE DOCUMENT ---
Author Name elida marrero Address Unknown Organization [facility] Address [address] [place] [address] [address] [place] [address] Phone [phone] Care Team Providers Care Centrifugal Wax Molder Name Role Phone Dominique Sands MD Unavailable [phone] TIMUR SIBLEY MD Unavailable PROBLEMS Condition Status Date Provider Notes CVA 09/2015 active Dominique Sands MD HTN active Dominique Sands MD Hypercholesterolemia active Dominique Sands MD GERD active Dominique Sands MD Cough due to TONY inhibitor active Dominique Sands MD ENCOUNTERS Date Type Provider Location Encounter Diagnosis - In-person encounter Office Visit Dominique Sands MD [place] [facility] CVA 09/2015HTNHypercho lesterolemiaGERDCo ugh due to [...] Payer name Policy type / Coverage type [place] red democrat ID [employer] Commercial insurance compan y [id number] [place] MEDICARE Medicare [id number] TREATMENT PLAN Date Name Performer Cardiology:She still [...] Name Provider Procedure Notes S tatus SNOMED-CT: 957190636 [id number] Current Medications Documented Dominique Sands MD completed SNOMED-CT: 376922270 Smoking Cessation Counseling Dominique Sands MD completed SNOMED-CT: 40965421 Physical Exam, Performed: Pulse Exam of Foot Dominique Sands MD completed
--- NOTE | 2024-12-28 19:22 | PC.NURSE ---
Pt reports mild pain in the center of her chest. She describes the pain as dull and rates it as a 4. Pt states that she gets this kind of pain when she is having anxiety. Pt reports that due to her fall, she has not had her anxiety medicine for 2 days. ERP notified. No new orders.
[2024-12-28 19:23] LABS: D Dimer 1.56 mg/L (0.19-0.50)
[2024-12-28 19:36] LABS: Alanine Aminotransferase 40 U/L (14-59); Albumin Level 3.7 g/dL (3.4-5.0); Alkaline Phosphatase 107 U/L (46-116); Anion Gap 19 mmol/L (4-12); Aspartate Amino Transferase 132 U/L (15-37); Blood Urea Nitrogen 31 mg/dL (7-18); Calcium 9.3 mg/dL (8.5-10.1); Carbon Dioxide 19 mmol/L (21-32); Chloride 104 mmol/L (98-108); Estimated CRCL calculation 22 ml/min; Estimated Glomerular Filt Rate 26; Glucose 148 mg/dL (70-99); NT Pro B Type Natriuretic Pept 1242 pg/mL (0-450); Osmolality Calculated 303 mOsm/kg (285-295); Potassium 4.3 mmol/L (3.5-5.1); Sodium 142 mmol/L (136-145); Total Protein 7.5 g/dL (6.4-8.2)
[2024-12-28 19:38] LABS: Creatine Kinase 4657 U/L (26-192)
[2024-12-28 19:39] LABS: Troponin I 96.5 ng/L (0.00-60.4)
[2024-12-28 19:50] LABS: Influenza A QL RT-PCR Negative (Negative); Influenza B QL RT-PCR Negative (Negative); RSV RNA, RT-PCR Negative (Negative); SARS-CoV-2 RNA PCR Negative (Negative)
[2024-12-28 20:59] LABS: Add Urine Microscopic? YES; Appearance Urine Clear (Clear); Bilirubin Urine Negative (Negative); Blood Urine 3+ (Negative); Color Urine Light Yellow (Yellow); Glucose Urine UA Negative (Negative); Ketones Urine 2+ (Negative); Leukocyte Esterase Ur 1+ LEU/UL (Negative); Nitrate Urine Positive (Negative); Protein Urine 1+ (Negative); Specific Grav Ur >= 1.030 (1.010-1.020); Urobilinogen Urine 0.2 mg/dL (0.2-1.0); pH Urine 5.5 (5.0-8.0)
[2024-12-28 21:05] LABS: Amorphous Sediment Urine Few; Bacteria Urine 2+ /hpf; Squamous Epithelial Cell Urine Rare /hpf (Few); WBC Urine 21-30 /hpf (0-3)
[2024-12-28 21:36] LABS: Lactic Acid Reflex 2.5 mmol/L (0.4-2.0)
[2024-12-28 21:44] LABS: Anion Gap 20 mmol/L (4-12); Blood Urea Nitrogen 28 mg/dL (7-18); Calcium 8.4 mg/dL (8.5-10.1); Carbon Dioxide 17 mmol/L (21-32); Chloride 106 mmol/L (98-108); Estimated CRCL calculation 24 ml/min; Estimated Glomerular Filt Rate 30; Glucose 143 mg/dL (70-99); Osmolality Calculated 303 mOsm/kg (285-295); Potassium 3.8 mmol/L (3.5-5.1); Sodium 143 mmol/L (136-145)
[2024-12-28 21:45] LABS: Creatine Kinase 4375 U/L (26-192)
[2024-12-28] MEDS: SODIUM CHLORIDE 0.9% IV 500 ML 999 ML IV CONT (21:54)
[2024-12-28 22:06] LABS: Reflex Lactic Acid Yes or No Add Lactic
--- NOTE | 2024-12-28 22:20 | PC.NURSE ---
ERP aware of pt's vitals. No new orders.
[2024-12-28] MEDS: PIPERACILLN/TAZ 3.375GM/NS50ML 3.375 GM/50 ML BAG IVPB (22:24)
[2024-12-28] MEDS: ASPIRIN 81 MG CHEWABLE TABLET PO (22:32)
[2024-12-28] MEDS: ONDANSETRON INJ 4 MG/2 ML VIAL IV PUSH (22:38)
--- NOTE | 2024-12-28 23:23 | PC.NURSE ---
Pt's daughter, Natasha Abebe, going home. Please call her with transfer information.
[2024-12-29] VITALS (9 sets, daily range): BP systolic 137–154; BP diastolic 52–77; PULSE 120–140; RESP 16–29; TEMP 37; O2SAT 97–100
--- NOTE | 2024-12-29 02:55 | PC.NURSE ---
ERP aware of pt's vital signs. No new orders.
== END 2024-12-29 03:22 | disposition short-term general hospital (02) ==
PROVIDERS: Emergency Provider Emergency Medicine; PCP Family Medicine
DX: A41.9 Sepsis, unspecified organism (principal); N39.0 Urinary tract infection, site not specified; R79.89 Other specified abnormal findings of blood chemistry; N17.9 Acute kidney failure, unspecified; E86.0 Dehydration; E87.21 Acute metabolic acidosis; T79.6XXA Traumatic ischemia of muscle, initial encounter; E11.9 Type 2 diabetes mellitus without complications; I10 Essential (primary) hypertension; E78.5 Hyperlipidemia, unspecified; Z20.822 Contact with and (suspected) exposure to COVID-19; W18.11XA Fall from or off toilet without subsequent striking against object, initial encounter
CPT/HCPCS: 36415; 70450; 71045; 71275; 72125; 73564; 80048; 80053; 81001; 82550; 82948; 83605; 83880; 84484; 85025; 85380; 87040; 87086; 87637; 93005; 96361; 96365; 96375; 99285; A9270; J2405; J2543; J7030; J7040; Q9967

== ENCOUNTER 2025-05-30 17:29 | Emergency (ER) | payer MEDICARE, SELFPAY ==
[2025-05-30] VITALS (9 sets, daily range): BP systolic 139–147; BP diastolic 68–84; PULSE 77–80; RESP 16; TEMP 36.3; O2SAT 96–98
--- OUTSIDE RECORDS SUMMARY | 2025-05-30 17:38 | XMS_ITS | Clinical Summary ---
Author Organization [facility] Address [address] [place] [address] Care Team Providers Care Marketing Forecaster Name Role Phone Baljit Landon MD Primary Care Provider [phone] Active Problems Problem Noted Date Diagnosed Date Chronic kidney disease, stage III (moderate) 09/2019 Other secondary hypertension 09/13/2019 Social History Tobacco [...] Comments Blood Pressure 156/72 09/13/2019 10:48 AM ORGAN TUNER ELECTRONIC Pulse 79 09/13/2019 10:48 AM ORGAN TUNER ELECTRONIC Temperature - - Respiratory Rate - - Oxygen Saturation - - Inhaled Oxygen Concentration - - Weight 77.3 kg (170 lb 6.7 oz) 09/13/2019 10:48 AM ORGAN TUNER ELECTRONIC Height 152.4 cm (5') 09/13/2019 10:48 AM ORGAN TUNER ELECTRONIC Body Mass Index 33.28 09/13/2019 10:48 AM ORGAN TUNER ELECTRONIC Plan of Treatment Health Maintenance Due Date Last Done Comments Hepatitis C 1967 DTaP, Tdap and Td Vaccines ( 1 - Tdap) 1968 Pneumococcal Vaccine: 50+ Ye ars (1 of 1 - PCV) 1999 Zoster Vaccines (1 of 2) 1999 Annual Medicare Wellness Visit 2014 Dexa Scan (General) 2014 RSV Immunization or 60+ Years (1 - 1-dose 75+ series) 2024 COVID-19 Vaccine ( - 2023-2 5 season) 2024 Meningococcal B Vaccine Aged Out No l onger eligible based on patient's age to complete this topic Meningococcal Vaccine Aged Out No ruth yan eligible based on patient's age to complete this topic RSV Immunizations Under 20 Months Aged Out No longer eligible based on patient's age to complete this topic Insurance [facility]IC[facility] CAS[facility] MEDICARE [employer] LIFE AND CASUALTY MEDICARE [employer] LIFE AND CASUALTY Care Teams Marketing Forecaster Relationship Specialty Start Date End Date Baljit Landon MD [address] [place] [address] PCP - General FAMILY PRACTICE 09/08/19
--- OUTSIDE RECORDS SUMMARY | 2025-05-30 17:38 | XMS_ITS | Clinical Summary ---
Author Organization [facility] Physician Office Building [address] [place] [id number] Care Team Providers Care Public Relations Supervisor Name Role Phone Edward Acharya DO Primary Care Provider Allergies Active Allergy Reactions Criticality Noted Date Comments Prochlorperazine Itching Low 05/28/2022 Meperidine Mental status changes Low 05/28/2022 Medications metoprolol XL (TOPROL-XL) 100 mg 24 hr tablet Take 1 tablet (100 mg total) by mouth daily 05/07/20 22 Active valsartan (DIOVAN) 160 mg tablet Take 1 tablet (160 mg total) by mouth daily 05/07/20 22 Active rOPINIRole (REQUIP) 2 mg tablet Take 1 tablet (2 mg total) by mouth nightly 05/07/20 22 Active oxybutynin XL (DITROPAN-XL) 5 mg 24 hr tablet Take 1 tablet (5 mg total) by mouth daily 05/07/20 22 Active atorvastatin (LIPITOR) 80 mg tablet Take 1 tablet (80 mg total) by mouth daily 05/07/20 22 Active albuterol HFA (PROVENTIL HFA,VENTOLIN HFA,PROAIR HFA) 90 mcg/actuation inhaler Inhale 2 puffs every 6 (six) hours as needed 03/05/20 22 Active multivitamin capsule Take 1 capsule by mouth daily Active aspirin 81 mg enteric coated tabletIndications: Abnormal result of other cardiovascular function study,Abnormal stress test,History of CVA (cerebrovascular accident) Take 1 tablet (81 mg total) by mouth daily 30 tablet 11 05/28/20 22 Active budesonide/glycopy r/formoterol (BREZTRI AEROSPHERE INHAL) Inhale 2 puffs daily Active nitroglycerin (NITROSTAT) 0.4 mg SL tabletIndications: Coronary artery disease of [place] artery of [place] heart with stable angina pectoris Place 1 tablet (0.4 mg total) under the tongue every 5 (five) minutes as needed for chest pain May repeat dose q 5 min, up to 3 doses total 25 tablet 2 08/06/20 24 025 Active escitalopram (LEXAPRO) 10 mg tablet Take 1 tablet (10 mg total) by mouth daily Active UNABLE TO FIND Take 1 each by mouth nightly as needed (RLS) Med Name: Restful legs (Active Ingredients: Arsenicum Album 12X HPUS, Lycopodium 6X HPUS, Pulsatilla 6X HPUS, Rhus Toxicodendron 6X HPUS, Cameron 6X HPUS, Zincum Metallicum 12X HPUS.) Active UNABLE TO FIND Take 1 each by mouth nightly as needed (sleep) Med Name: sleep aid; melatonin 7 mg, magnesium malate 41.32 mg, hops 16.53 mg, valerian root 27 mg. Active cyanocobalamin (Vitamin B-12) 2,000 mcg tabletIndications: Prevention of Vitamin B12 Deficiency Take 1 tablet (2,000 mcg total) by mouth daily 01/05/20 25 026 Active cholecalciferol (VITAMIN D-3) 5,000 unit capsule Take 1 capsule (5,000 Units total) by mouth daily 01/05/20 25 Active amLODIPine (NORVASC) 5 mg tablet Take 1 tablet (5 mg total) by mouth daily 01/05/20 25 026 Active ferrous sulfate 325 mg (65 mg of elemental iron) tabletIndications: Iron Deficiency Anemia Take 1 tablet (325 mg total) by mouth daily with lunch 01/04/20 25 026 Active ticagrelor (Brilinta) 60 mg tablet Take 1 tablet (60 mg total) by mouth 2 (two) times a day 180 tablet 3 03/10/20 25 Active Active Problems Problem Noted Date Diagnosed Date Acute kidney injury superimp osed on stage 3b chronic kidney disease 12/30/2024 Non-traumatic rhabdomyolysis 12/30/2024 NSTEMI (non-ST elevated myocardial infarction) 0 12/29/2024 Syncope and collapse 12/29/2024 Coronary artery disease of n ative artery of [place] heart with stable angina pectoris 08/23/2022 LEWIS (dyspnea on exertion) 05/28/2022 History of CVA (cerebrovascular accident) 2021 Abnormal stress test 05/28/2022 Hyperlipidemia associated with type 2 diabetes m ellitus 05/28/2022 Hypertension associated with stage 3 chronic kidney disease due to type 2 diabetes mellitus 05/28/2022 Abnormal result of other cardiovascular function study 05/28/2022 Other general symptoms and signs 05/28/2022 Encounters Date Type Department Care Team Description 03/16/2025 10:15 AM CDT Office Visit [facility] Cardiology [address] [place] [address] Travis Gonzalez MD Coronary artery disease of [place] artery of [place] heart with stable angina pectoris (Primary Dx); History of CVA (cerebrovascular accident); Syncope and collapse; Hyperlipidemia associated with type 2 diabetes mellitus (HCC); Hypertension associated with stage 3 chronic kidney disease due to type 2 diabetes mellitus (HCC) from Last 3 Months Surgical History Surgery Date Site/Laterality Comments DILATION [...] Tobacco: Never Tobacco Cessation:Counseling Given: Not Answered [facility] Utilities Answer Date Recorded In the past 12 months has [employer], gas, oil, or water [employer] threatened to shut off services in your home? No 12/29/2024 Social Connection and Isolat ion Panel [NHANES] Answer Date Recorded In a typical week, how many times do you talk on the phone with family, friends, or neighbors? More than three times a week 12/29/2024 How often do you get togethe r with friends or relatives? More than three times a week 12/29/2024 How often do you attend chur ch or sikh services? 1 to 4 times per year 12/29/2024 Do you belong to any clubs o r organizations such as episcopalian groups, unions, fraternal or athletic groups, or school groups? No 12/29/2024 How often do you attend meet ings of the clubs or organizations you belong to? Never 12/29/2024 Are you , , di vorced, , never , or living with a partner? 12/29/2024 Overall Financial Resource Strain (CARDIA) Answe r Date Recorded How hard is it for you to pa y for the very basics like food, housing, medical care, and heating? Not very hard 12/29/2024 Hunger Vital Sign Answer Date Recorded Within the past 12 months, y ou worried that your food would run out before you got the money to buy more. Never true 12/29/19 25 Within the past 12 months, t he food you bought just didn't last and you didn't have money to get more. Never true 12/29/2024 PRAPARE - Transportation Answer Date Re corded In the past 12 months, has l ack of transportation kept you from medical appointments or from getting medications? No 12/05 In the past 12 months, has l ack of transportation kept you from meetings, work, or from getting things needed for daily living? No 12/29/2024 Housing Stability Vital Sign Answer Jonathan e Recorded In the last 12 months, was t here a time when you were not able to pay the mortgage or rent on time? No 12/29/2024 In the past 12 months, how m any times have you moved where you were living? 0 12/29/2024 At any time in the past 12 m [facility], were you homeless or living in a custodial (including now)? No 12/29/2024 Personal Safety Answer Date Recorded Have you ever been in or are you currently in a harmful physical or emotional relationship or is someone making you feel afraid or unsafe? Denies 12/29/2024 Comments Unknown Sex and Gender Information Value Date Recorded Sex Assigned at Not on file Legal Sex Female 2:29 PM [employer] Gender Identity Female 03/26/2022 3:44 PM CDT Sexual Orientation Straight 03/26/2022 3: 44 PM CDT Obstetrics History Last Filed Vital Signs Vital Sign Reading Time Taken Comments Blood Pressure 112/62 03/16/2025 10:31 AM CDT Pulse 70 03/16/2025 10:31 AM CDT Temperature 37 C (98.6 F) 01/03/2025 7:49 AM [employer] Respiratory Rate 17 01/03/2025 7:49 AM [employer] Oxygen Saturation 94% 03/16/2025 10:31 AM CDT Inhaled Oxygen Concentration - - Weight 73.9 kg (163 lb) 03/16/2025 10:31 AM CDT Height 152.4 cm (5') 03/16/2025 10:31 AM CDT Body Mass Index 31.83 03/16/2025 10:31 AM CDT Plan of Treatment Health Maintenance Due Date Last Done Comments Albumin Creatinine Ratio, Urine 1950 Depression Screening 1950 Hepatitis C Screening 1950 Osteoporosis Screening-Bone Density Scan 1950 Dilated Eye Exam 1949 Foot Exam 1949 DTaP/Tdap/Td Vaccine (1 - Tdap) 1960 Hepatitis B Screening 1967 Well Visit 65+ 2014 Zoster Vaccine (2 of 2) 10/28/2016 09/02/2016 Hemoglobin A1C 06/28/2025 12/29/2024 Influenza Vaccine (#1) 2025 , 08/09/2019, 06/29/2018, Additional history exists Lipid Panel 12/29/2025 12/29/2024, 2 04/2024, 12/24/2022, Additional history exists Fall Risk Assessment 01/03/2026 01/03/2025 eGFR 01/03/2026 01/03/2025, 030 12/2024, 01/01/2025, Additional history exists Pneumococcal vaccine 65+ Completed 02/06/2022, 06/03 Procedures Procedure Name Priority Date/Time Associated Diagnosis Comments EGFR Routine 01/03/2025 2:06 AM [employer] HEMOGLOBIN A1C STAT 12/29/2024 4:56 AM [employer] LIPID PANEL STAT 12/29/2024 4:56 AM [employer] from Last 3 Months or Most Recently Relevant to Health Maintenance Results * (ABNORMAL) eGFR (01/03/2025 2:06 AM [employer]) eGFR 42(L) >=60 mL/min/1. 73 m2 Comment: Interpretive Data Reference Interval Normal >/= 90 mL/min/1.73m2 Mildly decreased* 60 - 89 mL/min/1.73m2 Mildly to moderately decreased 45 - 59 mL/min/1.73m2 Moderately to severely decreased 30 - 44 mL/min/1.73m2 Severely decreased 15 - 29 mL/min/1.73m2 Kidney Failure < 15 mL/min/1.73m2 *Relative to young adult level Estimated glomerular filtration rate is determined by the 2020 CKD-EPI equation recommended by the National Kidney Foundation (A Unifying Approach to GFR Estimation: Recommendations of the NKF-ASK Task Force on Reassessing the Inclusion of Race in Diagnosing Kidney Disease, JASN 2020). The CKD-EPI equation should not be used for patients with unstable renal function and has not been validated in children and those over 70. Current interpretive data was last reviewed 2021. Blood 01/03/2025 2:06 AM [employer] 01/03/2025 2:50 AM [employer] Marva Laird NP LAB BLOOD ORDERABLES Final Result SHIELA [address] [facility] Department [place] [address] * (ABNORMAL) Hemoglobin A1c (12/29/2024 4:56 AM [employer]) Hgb A1C 6.4(H) 4.0 - 5.6 % Estimated Average Glucose 137 mg/dL SHIELA GUEVARA Comment: The ADA recommends reporting an estimated Average Glucose (eAG) with all Hemoglobin A1c results using the equation derived from a study of 507 normal and diabetic adults. Minority populations were underrepresented and children were not included. (Diabetes Care 31:1541-7497, 2008). The eAG is not equivalent to a fasting glucose. Blood 12/29/2024 4:56 AM [employer] 12/29/2024 5:04 AM [employer] us Nakul Valerio MD LAB BLOOD ORDERABLES F inal Result SHIELA GUEVARA [address] [facility] Department [place] [address] * Lipid panel (12/29/2024 4:56 AM [employer]) Cholesterol 122 30 - 199 mg/dL Comment: Interpretive Data Ages < or = 19 years Acceptable: <170 mg/dL Borderline high: 170-199 mg/dL High: >or= 200 mg/dL Ages > or = 20 years Desirable: <200 mg/dL Borderline high: 200-239 mg/dL High: >or= 240 mg/dL Literature References: 1. Expert Panel on Integrated Guidelines for Cardiovascular Health and Risk Reduction in Children and Adolescents. Pediatrics 2011;128:S213 2. NCEP Expert Panel. Circulation 2004;110:227 Current Interpretive Data was last revised on 2018. Triglycerides 120 <=149 mg/dL SHIELA Comment: Interpretive Data Ages < or = 9 years Acceptable: <75 mg/dL Borderline high: 75-99 mg/dL High: >or= 100 mg/dL Ages 10 to 20 years Acceptable: <90 mg/dL Borderline high: 90-129 mg/dL High: >or= 130 mg/dL Ages > or = 20 years Desirable: <150 mg/dL Borderline high: 150-199 mg/dL High: 200-499 mg/dL Very high: >or= 499 mg/dL Literature References: 1. Expert Panel on Integrated Guidelines for Cardiovascular Health and Risk Reduction in Children and Adolescents. Pediatrics 2011;128:S213 2. NCEP Expert Panel. Circulation 2004;110:227 Current Interpretive Data was last revised on 2018. HDL 67 >=40 mg/dL SHIELA Comment: Interpretive Data Ages < or = 19 years Acceptable: >45 mg/dL Borderline low: 40-45 mg/dL Low: <40 mg/dL Ages > or = 20 years Desirable: >or= 60 mg/dL Low: <40 mg/dL Literature References: 1. Expert Panel on Integrated Guidelines for Cardiovascular Health and Risk Reduction in Children and Adolescents. Pediatrics 2011;128:S213 2. NCEP Expert Panel. Circulation 2004;110:227 Current Interpretive Data was last revised on 2018. LDL, calculated 34 <=129 mg/dL SHIELA GUEVARA Comment: Interpretive Data Ages < or = 19 years Acceptable: <110 mg/dL Borderline high: 110-129 mg/dL High: >or= 130 mg/dL Ages > or = 20 years Optimal: <100 mg/dL Near optimal: 100-129 mg/dL Borderline high: 130-159 mg/dL High: >160 mg/dL Calculated using the Rishabh LDL-C estimating equation. This equation was implemented on 2024. Prior to this date LDL-C was estimated using the Friedewald equation. Literature References: 1. Expert Panel on Integrated Guidelines for Cardiovascular Health and Risk Reduction in Children and Adolescents. Pediatrics 2011;128:S213 2. NCEP Expert Panel. Circulation 2004;110:227 3. Rishabh Huddleston et al. TOYA Cardiol. 2020 March 03;5(5):540-548. doi: [email or web address] Current Interpretive Data was last revised on 2024. Non-HDL Cholesterol 55 mg/dL SHIELA GUEVARA Comment: Interpretive Data Ages < or = 19 years Acceptable: <120 mg/dL Borderline high: 120-144 mg/dL High: >145 mg/dL Ages > or = 20 years When triglycerides are >200 mg/dL, Non-HDL cholesterol is a secondary target of therapy with treatment goals that are 30 mg/dL greater than the LDL cholesterol target. Literature References: 1. Expert Panel on Integrated Guidelines for Cardiovascular Health and Risk Reduction in Children and Adolescents. Pediatrics 2011;128:S213 2. NCEP Expert Panel. Circulation 2004;110:227 Current Interpretive Data was last revised on 2018. Chol/HDL ratio 2 SHIELA GUEVARA Blood 12/29/2024 4:56 AM [employer] 12/29/2024 5:05 AM [employer] Nakul Valerio MD LAB BLOOD ORDERABLES F inal Result [facility] [address] [facility] [place] [address] from Last 3 Months or Most Recently Relevant to Health Maintenance Insurance MEDICARE COMMERCIAL GENERIC MEDICARE COMMERCIAL GENERIC Advance Directives For more information, please contact: [phone] * Full Code (Latest Code Status on File) Date Activated Date Inactivated Comments 01/02/2025 10:37 AM 01/03/2025 5:53 PM Care Teams Public Relations Supervisor Relationship Specialty Start Date End Date Edward Acharya DO [address] [place] [address] PCP - General Family Medicine 03/05/22
--- OUTSIDE RECORDS SUMMARY | 2025-05-30 17:38 | XMS_ITS | Referral Summary ---
Author Organization [facility] Physician Office Building [address] [place] [address] Care Team Providers Care Pick Up Driver Name Role Phone SalmaEdward mata Primary Care Provider Encounters Date Type Department Care Team Description 03/16/2025 10:15 AM CDT Office Visit [facility] Cardiology [address] [facility] [address] [place] [id number] Travis Gonzalez MD Coronary artery disease of [place] artery of [place] heart with stable angina pectoris (Primary Dx); History of CVA (cerebrovascular accident); Syncope and collapse; Hyperlipidemia associated with type 2 diabetes mellitus (HCC); Hypertension associated with stage 3 chronic kidney disease due to type 2 diabetes mellitus (HCC) from Last 3 Months Allergies Active Allergy Reactions Criticality Noted Date [...] mg SL tabletIndications: Coronary artery disease of [place] artery of [place] heart with stable angina pectoris Place 1 [...] Pulsatilla 6X HPUS, Rhus Toxicodendron 6X HPUS, [place] 6X HPUS, Zincum Metallicum 12X HPUS.) Active [...] (5 mg total) by mouth daily 01/05/20 026 Active ferrous sulfate 325 mg (65 mg of elemental iron) tabletIndications: Iron Deficiency Anemia Take 1 tablet (325 mg total) by mouth daily with lunch 01/04/20 25 026 Active ticagrelor (Brilinta) 60 mg tablet Take 1 tablet (60 mg total) by mouth 2 (two) times a day 180 tablet 3 03/10/20 Active Active Problems Problem Noted Date Diagnosed Date Acute kidney injury superimp osed on stage 3b chronic kidney disease 12/30/2024 Non-traumatic rhabdomyolysis 12/30/2024 NSTEMI (non-ST elevated myocardial infarction) 0 12/29/2024 Syncope and collapse 12/29/2024 Coronary artery disease of n ative artery of [place] heart with stable angina pectoris 08/23/2022 LEWIS (dyspnea on exertion) 05/28/2022 History of CVA (cerebrovascular accident) 2021 Abnormal stress test 05/28/2022 Hyperlipidemia associated with type 2 diabetes m starlaitus 05/28/2022 Hypertension associated with stage 3 chronic kidney disease due to type 2 diabetes mellitus 05/28/2022 Abnormal result of other cardiovascular function study 05/28/2022 Other general symptoms and signs 05/28/2022 Social History Tobacco Use Types Packs/Day Years Used Date Smoking Tobacco: Never Smokeless Tobacco: Never Tobacco Cessation:Counseling Given: Not Answered [facility] [employer] Answer Date Recorded In the past 12 months has [employer], gas, oil, or water [employer] threatened to shut off services in your [...] often do you attend chur ch or mandaen services? 1 to 4 times per year 12/29/2024 Do you belong to any clubs o r organizations such as baptism groups, unions, fraternal or athletic groups, or [...] any time in the past 12 m [facility], were you homeless or living in a penitentiary (including now)? No 12/29/2024 Personal Safety Answer Date Recorded Have you ever been in or are you currently in a harmful physical or emotional relationship or is someone making you feel afraid or unsafe? Denies 12/29/2024 Comments Unknown Sex and Gender Information Value Date Recorded Sex Assigned at Not on file Legal Sex Female 2:29 PM [employer]IL[employer] Gender Identity Female 03/26/2022 3:44 PM CDT Sexual Orientation Straight 03/26/2022 3: 44 PM CDT Last Filed Vital Signs Vital Sign Reading Time Taken Comments Blood Pressure 112/62 03/16/2025 10:31 AM CDT Pulse 70 03/16/2025 10:31 AM CDT Temperature 37 C (98.6 F) 01/03/2025 7:49 AM B[employer]ILLE C[employer] Respiratory Rate 17 01/03/2025 7:49 AM BRAILLE C[employer]ER Oxygen Saturation 94% 03/16/2025 10:31 AM CDT Inhaled Oxygen Concentration - - Weight 73.9 kg (163 lb) 03/16/2025 10:31 AM CDT Height 152.4 cm (5') 03/16/2025 10:31 AM CDT Body Mass Index 31.83 03/16/2025 10:31 AM CDT Plan of Treatment Not on file Procedures Procedure Name Priority Date/Time Associated Diagnosis Comments EGFR Routine 01/03/2025 2:06 AM BRAILLE CODER HEMOGLOBIN A1C STAT 12/29/2024 4:56 AM BRAILLE CODER LIPID PANEL STAT 12/29/2024 4:56 AM BRAILLE CODER from Last 3 Months or Most Recently Relevant to Health Maintenance Results * (ABNORMAL) eGFR (01/03/2025 2:06 AM BRAILLE CODER) eGFR 42(L) >=60 mL/min/1. 73 m2 Comment: [...] of Race in Diagnosing Kidney Disease, JASN 202). The CKD-EPI equation should not be used for patients with unstable renal function and has not been validated in children and those over 70. Current interpretive data was last reviewed 2021. Blood 01/03/2025 2:06 AM BRAILLE CODER 01/03/2025 2:50 AM BRAILLE CODER Marva Laird NP LAB BLOOD ORDERABLES Final Result [id number] [place] [address] * (ABNORMAL) Hemoglobin A1c (12/29/2024 4:56 AM BRAILLE CODER) Pathologist [facility] Hgb A1C 6.4(H) 4.0 - 5.6 % Estimated Average Glucose 137 mg/dL SHIELA Comment: The ADA recommends reporting an estimated Average Glucose (eAG) with all Hemoglobin A1c results using the equation derived from a study of 507 normal and diabetic adults. Minority populations were underrepresented and children were not included. (Diabetes Care 31:6664-7162, 2008). The eAG is not equivalent to a fasting glucose. Blood 12/29/2024 4:56 AM BRAILLE CODER 12/29/2024 5:04 AM BRAILLE CODER Nakul Valerio MD LAB BLOOD ORDERABLES F inal Result Performing Organization Address [facility] de Phone Number [address] [place] [address] * Lipid panel (12/29/2024 4:56 AM BRAILLE CODER) [facility] Cholesterol 122 30 - 199 mg/dL Comment: [...] on 2018. HDL 67 >=40 mg/dL SHIELA GUEVARA Comment: Interpretive Data Ages [...] NCEP Expert Panel. Circulation 2004;110:227 3. Rishabh Man al. TOYA Cardiol. 2020 March 03;5(5):540-548. doi: [...] 2 SHIELA GUEVARA Blood 12/29/2024 4:56 AM BRAILLE CODER 12/29/2024 5:05 AM BRAILLE CODER us Nakul Valerio MD LAB BLOOD ORDERABLES F inal Result SHIELA GUEVARA [address] [facility] Department [place] [address] from Last 3 Months or Most Recently Relevant to Health Maintenance Insurance MEDICARE COMMERCIAL GENERIC MEDICARE COMMERCIAL GENERIC Advance Directives For more information, please contact: [phone] * Full Code (Latest Code Status on File) Date Activated Date Inactivated Comments 01/02/2025 10:37 AM 01/03/2025 5:53 PM Care Teams Pick Up Driver Relationship Specialty Start Date End Date Edward Acharya DO [address] [place] [address] PCP - General Family Medicine 03/05/22
--- NOTE | 2025-05-30 17:48 | ED.DIZZY ---
HPI - Dizziness General Chief Complaint: Dizziness Stated Complaint: dizzy Time Seen by Provider: 05/30/25 17:37 History of Present Illness HPI Narrative: Pt presents with dizziness off and on for two weeks. Pt says it goes away when she sits and is not moving and is produced by getting up and moving around. This afternoon she was lying down and rolled over and the room started spinning. the symptoms resolved when she sat still. Pt denies VICENTE or one sided weakness. Pt has had vertigo before and was similar. Related Data Home Medications ?Medication ?Instructions ?Recorded ?Confirmed ?Last Taken ?Type multivitamin 1 tablet PO DAILY 06/05/22 05/30/25 06/04/22 12:00 History ticagrelor 60 mg tablet (Brilinta) 60 mg PO Q12H 10/21/23 05/30/25 Unknown History amlodipine 10 mg tablet 5 mg PO DAILY 05/30/25 05/30/25 Unknown History cholecalciferol (vitamin D3) 125 125 mcg PO DAILY 05/30/25 05/30/25 Unknown History mcg (5,000 unit) capsule cyanocobalamin (vitamin B-12) 2,000 mcg PO DAILY 05/30/25 05/30/25 Unknown History 2,000 mcg tablet,extended release ferrous sulfate 325 mg (65 mg 325 mg PO DAILY 05/30/25 05/30/25 Unknown History iron) tablet (Iron (ferrous sulfate)) Allergies Allergy/AdvReac Type Severity Reaction Status Date / Time prochlorperazine (Compazine) Allergy Intermediate Itching Verified 05/30/25 17:37 meperidine (Demerol) AdvReac Intermediate Other Verified 05/30/25 17:37 Review of Systems Review of Systems: All systems reviewed & are unremarkable except as noted in HPI and below PMFSH Past Medical History Medical History Breast pain, right Restless legs syndrome (RLS) CVA (cerebral vascular accident) Type 2 diabetes mellitus Urinary incontinence Chronic GERD Hypertension Hyperlipidemia Surgical History Surgical History H/O dilation and curettage Family History Family History Father Family history of congenital heart disease Family history of malignant neoplasm Mother Family history of arthritis Mother Family history of type 2 diabetes mellitus Other Acute myocardial infarction Social History Social History Smoking status: Never smoker Alcohol intake: current Alcohol use details: rare social use Substance use: never Substance use type: does not use and prescription drug Living arrangements: alone Spiritual care concerns: No Exam Const: General: healthy appearing and no acute distress Nutritional Appearance: well nourished Orientation/consciousness: patient oriented x3 Limitations: no limitations HENMT: Head: normal to inspection Ears: TM's normal bilaterally and EAC's normal Face and sinus: normal facial exam Mouth: Yes Normal oral and palatal mucosa present Throat: posterior oropharynx normal Eyes: Conjunctivae: conjunctivae normal Pupils: Equal, round and reactive pupils present EOM: EOMs intact bilaterally Chest: Chest palpation & inspection: normal inspection of the chest Resp: Effort & Inspection: normal respiratory effort Auscultation: clear to auscultation bilaterally Cardio: Rate: regular rate Rhythm: regular rhythm GI: GI Palp: Yes Soft to palpation and No Tenderness to palpation present (GI) Auscultation: normal bowel sounds Skin: General skin exam: normal color Rashes: no rashes Neuro: General: patient oriented x3, moves all extremities, no meningeal signs, no focal motor deficits and CN's II-XI intact bilaterally Cranial nerves: Yes Nystagmus not present Speech: normal speech Gait exam (Neuro): Normal gait present Other: dizziness reproduced turning head side to side resoves when still Extrem: General: normal to inspection and no clubbing, cyanosis or edema Psych: Mental Status: mental status grossly normal Affect: normal affect Attitude: cooperative Course Vital Signs Vital signs: Vital Signs Temperature 97.3 F L 05/30/25 17:29 Pulse Rate 80 05/30/25 17:29 Respiratory Rate 16 05/30/25 17:29 Blood Pressure 146/84 H 05/30/25 17:29 Pulse Oximetry 97 05/30/25 17:29 Oxygen Delivery Room Air 05/30/25 17:29 Temperature 97.3 F L 05/30/25 17:29 Pulse Rate 77 05/30/25 17:42 Respiratory Rate 16 05/30/25 17:29 Blood Pressure 139/78 05/30/25 18:31 Pulse Oximetry 96 05/30/25 18:31 Oxygen Delivery Room Air 05/30/25 17:29 MDM - Dizziness MDM Narrative Medical decision making narrative: seems like classic benign positional vertigo and not likely a cva given presentation and exam. will try antivert po and reassess. Pt says the dizziness is much better after antivert. will send home on rx Discharge Plan Discharge Clinical Impression: Vertigo, Benign paroxysmal positional vertigo Patient Disposition: Home Condition: Improved Instructions: Antibiotic Form, Benign Paroxysmal Positional Vertigo (ED) Patient Language: Singaporean Prescriptions: New meclizine 25 mg tablet 25 mg PO TID PRN (Reason: dizziness) Qty: 30 0RF No Action cholecalciferol (vitamin D3) 125 mcg (5,000 unit) capsule 125 mcg PO DAILY cyanocobalamin (vitamin B-12) 2,000 mcg tablet extended release 2,000 mcg PO DAILY ferrous sulfate [Iron (ferrous sulfate)] 325 mg (65 mg iron) tablet 325 mg PO DAILY amlodipine 10 mg tablet 5 mg PO DAILY Brilinta 60 mg tablet 60 mg PO Q12H albuterol sulfate 90 mcg/actuation HFA aerosol inhaler See Rx Instructions .ROUTE .COMPLEX Qty: 8.5 5RF Dose Instruction: INHALE 1 PUFF EVERY 4 HOURS NEEDED SHORTNESS OF BREATH OR WHEEZING Rx Instructions: INHALE 1 PUFF EVERY 4 HOURS NEEDED SHORTNESS OF BREATH OR WHEEZING aspirin 81 mg capsule 81 mg PO DAILY Qty: 90 0RF multivitamin Tablet 1 tablet PO DAILY nitroglycerin 0.4 mg tablet, sublingual 0.4 mg sublingual Q5M PRN (Reason: chest pain) Qty: 100 0RF Rx Instructions: do not exceed 3 doses per episode Bremadalyntri Aerosphere 160-9-4.8 mcg/actuation HFA aerosol inhaler 2 inh inhalation BID Qty: 10.7 0RF atorvastatin 80 mg tablet See Rx Instructions .ROUTE .COMPLEX Qty: 90 0RF Dose Instruction: Take 1 tablet by mouth once daily Rx Instructions: Take 1 tablet by mouth once daily oxybutynin chloride 5 mg tablet extended release 24hr See Rx Instructions .ROUTE .COMPLEX Qty: 90 0RF Dose Instruction: Take 1 tablet by mouth once daily Rx Instructions: Take 1 tablet by mouth once daily metoprolol succinate 100 mg tablet extended release 24 hr See Rx Instructions .ROUTE .COMPLEX Qty: 90 0RF Dose Instruction: Take 1 tablet by mouth once daily Rx Instructions: Take 1 tablet by mouth once daily escitalopram oxalate 10 mg tablet See Rx Instructions .ROUTE .COMPLEX Qty: 90 0RF Dose Instruction: Take 1 tablet by mouth once daily Rx Instructions: Take 1 tablet by mouth once daily ropinirole 2 mg tablet See Rx Instructions .ROUTE .COMPLEX Qty: 90 0RF Dose Instruction: TAKE 1 TABLET BY MOUTH EVERY DAY AT BEDTIME Rx Instructions: TAKE 1 TABLET BY MOUTH EVERY DAY AT BEDTIME Follow-up/Referrals: Edward Acharya DO [Primary Care Provider] -
[2025-05-30] MEDS: MECLIZINE HCL 25 MG TABLET 50 MG PO (17:50)
--- OUTSIDE RECORDS SUMMARY | 2025-05-30 18:19 | XMS_ITS | Clinical Summary ---
Author Organization [facility] Phys[facility] Building [address] [place] [id number] Care Team Providers Care Resource Program Teacher Name Role Phone Edward Acharya DO Primary [...] mg SL tabletIndications: Coronary artery disease of [place] artery of [place] heart with stable angina pectoris Place 1 [...] [place] 6X HPUS, Rhus Toxicodendron 6X HPUS, [place] 6X HPUS, Zincum Metallicum 12X HPUS.) Active [...] artery disease of n ative artery of [place] heart with stable angina pectoris 08/23/2022 LEWIS [...] Description 03/16/2025 10:15 AM CDT Office Visit [facility] Medical [facility] Cardiology [address] [place] [address] Travis Gonzalez MD Coronary artery disease of [place] artery of [place] heart with stable angina pectoris (Primary Dx); [...] Tobacco: Never Tobacco Cessation:Counseling Given: Not Answered [facility] Utilities Answer Date Recorded In the past 12 months has [employer], gas, oil, or water [employer] threatened to shut off services in your [...] often do you attend chur ch or mormon services? 1 to 4 times per year 12/29/2024 Do you belong to any clubs o r organizations such as taoism groups, unions, fraternal or athletic groups, or [...] any time in the past 12 m [facility], were you homeless or living in a halfway (including now)? No 12/29/2024 Personal Safety Answer Date Recorded Have you ever been in or are you currently in a harmful physical or emotional relationship or is someone making you feel afraid or unsafe? Denies 12/29/2024 Comments Unknown Sex and Gender Information Value Date Recorded Sex Assigned at Not on file Legal Sex Female 2:29 PM STORE ASSOCIATE Gender Identity Female 03/26/2022 3:44 PM CDT Sexual Orientation Straight 03/26/2022 3: 44 PM CDT Obstetrics History Last Filed Vital Signs Vital Sign Reading Time Taken Comments Blood Pressure 112/62 03/16/2025 10:31 AM CDT Pulse 70 03/16/2025 10:31 AM CDT Temperature 37 C (98.6 F) 01/03/2025 7:49 AM STORE ASSOCIATE Respiratory Rate 17 01/03/2025 7:49 AM STORE ASSOCIATE Oxygen Saturation 94% 03/16/2025 10:31 AM CDT [...] Diagnosis Comments EGFR Routine 01/03/2025 2:06 AM STORE ASSOCIATE HEMOGLOBIN A1C STAT 12/29/2024 4:56 AM STORE ASSOCIATE LIPID PANEL STAT 12/29/2024 4:56 AM STORE ASSOCIATE from Last 3 Months or Most Recently Relevant to Health Maintenance Results * (ABNORMAL) eGFR (01/03/2025 2:06 AM STORE ASSOCIATE) eGFR 42(L) >=60 mL/min/1. 73 m2 Comment: [...] last reviewed 2021. Blood 01/03/2025 2:06 AM STORE ASSOCIATE 01/03/2025 2:50 AM STORE ASSOCIATE Marva Laird NP LAB BLOOD ORDERABLES Final Result SHIELA [address] [facility] Department [place] [address] * (ABNORMAL) Hemoglobin A1c (12/29/2024 4:56 AM STORE ASSOCIATE) Hgb A1C 6.4(H) 4.0 - 5.6 % Estimated Average Glucose 137 mg/dL SHIELA GUEVARA Comment: The ADA recommends reporting an estimated Average Glucose (eAG) with all Hemoglobin A1c results using the equation derived from a study of 507 normal and diabetic adults. Minority populations were underrepresented and children were not included. (Diabetes Care 31:8130-6536, 2008). The eAG is not equivalent to a fasting glucose. Blood 12/29/2024 4:56 AM STORE ASSOCIATE 12/29/2024 5:04 AM STORE ASSOCIATE us Nakul Valerio MD LAB BLOOD ORDERABLES F inal Result SHIELA GUEVARA [address] [facility] Department [place] [address] * Lipid panel (12/29/2024 4:56 AM STORE ASSOCIATE) Cholesterol 122 30 - 199 mg/dL Comment: [...] 2 SHIELA GUEVARA Blood 12/29/2024 4:56 AM STORE ASSOCIATE 12/29/2024 5:05 AM STORE ASSOCIATE Nakul Valerio MD LAB BLOOD ORDERABLES F inal Result [facility] [address] [facility] [place] [address] from Last 3 Months or Most Recently Relevant to Health Maintenance Insurance MEDICARE COMMERCIAL GENERIC MEDICARE COMMERCIAL GENERIC Advance Directives For more information, please contact: [phone] * Full Code (Latest Code Status on File) Date Activated Date Inactivated Comments 01/02/2025 10:37 AM 01/03/2025 5:53 PM Care Teams Resource Program Teacher Relationship Specialty Start Date End Date Edward Acharya DO [address] [place] [address] PCP - General Family Medicine 03/05/22
--- OUTSIDE RECORDS SUMMARY | 2025-05-30 18:19 | XMS_ITS | Referral Summary ---
Author Organization [facility] Physician Office Building [address] [place] [id number] Care Team Providers Care Wood Pile Driver Operator Name Role Phone SalmaEdward mata Primary Care Provider Encounters Date Type Department Care Team Description 03/16/2025 10:15 AM CDT Office Visit [facility] Medical Group Cardiology [address] [facility] [address] [place] [id number] Travis Gonzalez MD Coronary artery disease of [place] artery of [place] heart with stable angina pectoris (Primary Dx); [...] mg SL tabletIndications: Coronary artery disease of [place] artery of [place] heart with stable angina pectoris Place 1 [...] [place] 6X HPUS, Rhus Toxicodendron 6X HPUS, [place] 6X HPUS, Zincum Metallicum 12X HPUS.) Active [...] artery disease of n ative artery of [place] heart with stable angina pectoris 08/23/2022 LEWIS [...] Tobacco: Never Tobacco Cessation:Counseling Given: Not Answered [facility] Musisticities Answer Date Recorded In the past 12 months has [employer], gas, oil, or water [employer] threatened to shut off services in your [...] often do you attend chur ch or bahai services? 1 to 4 times per year 12/29/2024 Do you belong to any clubs o r organizations such as restoration groups, unions, fraternal or athletic groups, or [...] any time in the past 12 m [facility], were you homeless or living in a assisted (including now)? No 12/29/2024 Personal Safety Answer Date Recorded Have you ever been in or are you currently in a harmful physical or emotional relationship or is someone making you feel afraid or unsafe? Denies 12/29/2024 Comments Unknown Sex and Gender Information Value Date Recorded Sex Assigned at Not on file Legal Sex Female 2:29 PM ESL INSTRUCTOR Gender Identity Female 03/26/2022 3:44 PM CDT Sexual Orientation Straight 03/26/2022 3: 44 PM CDT Last Filed Vital Signs Vital Sign Reading Time Taken Comments Blood Pressure 112/62 03/16/2025 10:31 AM CDT Pulse 70 03/16/2025 10:31 AM CDT Temperature 37 C (98.6 F) 01/03/2025 7:49 AM ESL INSTRUCTOR Respiratory Rate 17 01/03/2025 7:49 AM ESL INSTRUCTOR Oxygen Saturation 94% 03/16/2025 10:31 AM CDT Inhaled Oxygen Concentration - - Weight 73.9 kg (163 lb) 03/16/2025 10:31 AM CDT Height 152.4 cm (5') 03/16/2025 10:31 AM CDT Body Mass Index 31.83 03/16/2025 10:31 AM CDT Plan of Treatment Not on file Procedures Procedure Name Priority Date/Time Associated Diagnosis Comments EGFR Routine 01/03/2025 2:06 AM ESL INSTRUCTOR HEMOGLOBIN A1C STAT 12/29/2024 4:56 AM ESL INSTRUCTOR LIPID PANEL STAT 12/29/2024 4:56 AM ESL INSTRUCTOR from Last 3 Months or Most Recently Relevant to Health Maintenance Results * (ABNORMAL) eGFR (01/03/2025 2:06 AM ESL INSTRUCTOR) eGFR 42(L) >=60 mL/min/1. 73 m2 Comment: [...] last reviewed 2021. Blood 01/03/2025 2:06 AM ESL INSTRUCTOR 01/03/2025 2:50 AM ESL INSTRUCTOR Marva Laird NP LAB BLOOD ORDERABLES Final Result [id number] [place] [address] * (ABNORMAL) Hemoglobin A1c (12/29/2024 4:56 AM ESL INSTRUCTOR) Pathologist [facility] Hgb A1C 6.4(H) 4.0 - 5.6 % Estimated Average Glucose 137 mg/dL SHIELA Comment: The ADA recommends reporting an estimated Average Glucose (eAG) with all Hemoglobin A1c results using the equation derived from a study of 507 normal and diabetic adults. Minority populations were underrepresented and children were not included. (Diabetes Care 31:4398-9785, 2008). The eAG is not equivalent to a fasting glucose. Blood 12/29/2024 4:56 AM ESL INSTRUCTOR 12/29/2024 5:04 AM ESL INSTRUCTOR Nakul Valerio MD LAB BLOOD ORDERABLES F inal Result Performing Organization Address [facility] de Phone Number [address] [place] [address] * Lipid panel (12/29/2024 4:56 AM ESL INSTRUCTOR) [facility] Cholesterol 122 30 - 199 mg/dL Comment: [...] on 2024. Non-HDL Cholesterol 55 mg/dL SHIELA GUEVAAR Comment: Interpretive Data Ages < or = [...] 2 SHIELA GUEVARA Blood 12/29/2024 4:56 AM ESL INSTRUCTOR 12/29/2024 5:05 AM ESL INSTRUCTOR us Nakul Valerio MD LAB BLOOD ORDERABLES F inal Result SHIELA GUEVARA [address] [facility] Department [place] [address] from Last 3 Months or Most Recently Relevant to Health Maintenance Insurance MEDICARE COMMERCIAL GENERIC MEDICARE COMMERCIAL GENERIC Advance Directives For more information, please contact: [phone] * Full Code (Latest Code Status on File) Date Activated Date Inactivated Comments 01/02/2025 10:37 AM 01/03/2025 5:53 PM Care Teams Wood Pile Driver Operator Relationship Specialty Start Date End Date Edward Acharya DO [address] [place] [address] PCP - General Family Medicine 03/05/22
--- OUTSIDE RECORDS SUMMARY | 2025-05-30 18:19 | XMS_ITS | Clinical Summary ---
Author Organization [facility] Address [address] [place] [address] Care Team Providers Care Conversion Developer Name Role Phone Baljit Landon MD Primary Care Provider [phone] Active Problems Problem Noted Date Diagnosed Date [...] Comments Blood Pressure 156/72 09/13/2019 10:48 AM TEST LAB TECHNICIAN Pulse 79 09/13/2019 10:48 AM TEST LAB TECHNICIAN Temperature - - Respiratory Rate - - Oxygen Saturation - - Inhaled Oxygen Concentration - - Weight 77.3 kg (170 lb 6.7 oz) 09/13/2019 10:48 AM TEST LAB TECHNICIAN Height 152.4 cm (5') 09/13/2019 10:48 AM TEST LAB TECHNICIAN Body Mass Index 33.28 09/13/2019 10:48 AM TEST LAB TECHNICIAN Plan of Treatment Health Maintenance Due Date [...] age to complete this topic Insurance [facility]ICARE [facility] LIFE AND CASUALTY MEDICARE BANKERS LIFE AND CASUALTY MEDICARE BANKERS LIFE AND CASUALTY Care Teams Conversion Developer Relationship Specialty Start Date End Date Baljit Landon MD [address] [place] [address] PCP - General FAMILY PRACTICE 09/08/19
== END 2025-05-30 19:00 | disposition home or self-care (01) ==
PROVIDERS: Emergency Provider Emergency Medicine; PCP Family Medicine
DX: H81.10 Benign paroxysmal vertigo, unspecified ear (principal)
CPT/HCPCS: 99283; A9270

== ENCOUNTER 2025-10-14 09:05 | Outpatient (CLI) | payer MEDICARE, SELFPAY ==
[2025-10-14 10:08] LABS: Anion Gap 10 mmol/L (4-12); Blood Urea Nitrogen 22 mg/dL (7-17); Calcium 9.8 mg/dL (8.4-10.2); Carbon Dioxide 22 mmol/L (22-30); Chloride 109 mmol/L (98-107); Estimated Glomerular Filt Rate 35; Glucose 125 mg/dL (65-110); Osmolality Calculated 296 mOsm/kg (285-295); Potassium 4.6 mmol/L (3.4-5.0); Sodium 141 mmol/L (137-145)
== END 2025-10-14 09:06 | disposition home or self-care (01) ==
LOC: CHSLAB 09:08
PROVIDERS: PCP Family Medicine; Visit Provider Internal Medicine Cardiovascular Disease
DX: E11.22 Type 2 diabetes mellitus with diabetic chronic kidney disease (principal); I12.9 Hypertensive chronic kidney disease with stage 1 through stage 4 chronic kidney disease, or unspecified chronic kidney disease; N18.30 Chronic kidney disease, stage 3 unspecified
CPT/HCPCS: 36415; 80048

== ENCOUNTER 2025-11-01 09:18 | Outpatient (CLI) | payer MEDICARE, SELFPAY ==
--- OUTSIDE RECORDS SUMMARY | 2025-11-01 09:34 | XMS_ITS | Clinical Summary ---
Author Organization [facility] Address [address] [place] [address] Care Team Providers Care Cut Off Saw Operator Pipe Blanks Name Role Phone Baljit Landon MD Primary Care Provider [phone] Active Problems Problem Noted Date Diagnosed Date [...] Comments Blood Pressure 156/72 09/13/2019 10:48 AM FABRICATOR ASSEMBLER [employer]ODU[employer] Pulse 79 09/13/2019 10:48 AM FABRICATOR ASSEMBLER [employer] Temperature - - Respiratory Rate - - Oxygen Saturation - - Inhaled Oxygen Concentration - - Weight 77.3 kg (170 lb 6.7 oz) 09/13/2019 10:48 AM FABRICATOR ASSEMBLER [employer] Height 152.4 cm (5') 09/13/2019 10:48 AM FABRICATOR ASSEMBLER [employer] Body Mass Index 33.28 09/13/2019 10:48 AM FABRICATOR ASSEMBLER [employer] Plan of Treatment Health Maintenance Due Date [...] 75+ series) 2024 COVID-19 Vaccine ( - 2024-2 6 season) 2025 Influenza Adult (#1) 2025 Hepatitis A Vaccines Aged Out No long er eligible based on patient's age to complete this topic Meningococcal B Vaccine Aged Out No l onger eligible based on patient's age to complete this topic Meningococcal Vaccine Aged Out No ruth yan eligible based on patient's age to complete this topic RSV Immunizations Under 20 Months Aged Out No longer eligible based on patient's age to complete this topic Insurance MEDICARE [employer] LIFE AND CASUALTY MEDICARE BANKERS LIFE AND CASUALTY MEDICARE BANKERS LIFE AND CASUALTY Care Teams Cut Off Saw Operator Pipe Blanks Relationship Specialty Start Date End Date Baljit Landon MD [address] [place] [address] PCP - General FAMILY PRACTICE 09/08/19
--- OUTSIDE RECORDS SUMMARY | 2025-11-01 09:34 | XMS_ITS | Clinical Summary ---
Author Organization [facility] Physician [facility] Building [address] [place] [id number] Care Team Providers Care Pretzel Packer Name Role Phone Edward Acharya DO Primary [...] daily Active aspirin 81 mg enteric coated tabletIndications :Abnormal result of other cardiovascular function study,Abnormal stress test,History of CVA (cerebrovascular accident) Take 1 tablet (81 mg total) by mouth daily 30 tablet 11 05/28/20 22 Active budesonide/glycop yr/formoterol (BREZTRI AEROSPHERE INHAL) Inhale 2 puffs daily Active nitroglycerin (NITROSTAT) 0.4 mg SL tabletIndications :Coronary artery disease of [place] artery of [place] heart with stable angina pectoris Place 1 tablet (0.4 mg total) under the tongue every 5 (five) minutes as needed for chest pain May repeat dose q 5 min, up to 3 doses total 25 tablet 2 08/06/20 24 Active escitalopram (LEXAPRO) 10 mg tablet Take 1 tablet (10 mg total) by mouth daily Active UNABLE TO FIND Take 1 each by mouth nightly as needed (RLS) Med Name: Restful legs (Active Ingredients: Arsenicum Album 12X HPUS, Lycopodium 6X HPUS, Pulsatilla 6X HPUS, Rhus Toxicodendron 6X HPUS, Alta 6X HPUS, Zincum Metallicum 12X HPUS.) Active UNABLE TO FIND Take 1 each by mouth nightly as needed (sleep) Med Name: sleep aid; melatonin 7 mg, magnesium malate 41.32 mg, hops 16.53 mg, valerian root 27 mg. Active cyanocobalamin (Vitamin B-12) 2,000 mcg tabletIndications :Prevention of Vitamin B12 Deficiency Take 1 tablet (2,000 mcg total) by mouth daily 01/05/20 25 026 Active cholecalciferol (VITAMIN D-3) 5,000 unit capsule Take 1 capsule (5,000 Units total) by mouth daily 01/05/20 25 Active ferrous sulfate 325 mg (65 mg of elemental iron) tabletIndications :Iron Deficiency Anemia Take 1 tablet (325 mg total) by mouth daily with lunch 01/04/20 25 026 Active lidocaine viscous (XYLOCAINE) 2 % solution Take 10 mL by mouth 3 (three) times a day 100 mL 09/22/20 25 Active spironolactone (ALDACTONE) 25 mg tablet Take 0.5 tablets (12.5 mg total) by mouth daily 15 tablet 11 09/28/20 25 026 Active telmisartan (MICARDIS) 40 mg tabletIndications :Hypertension associated with stage 3 chronic kidney disease due to type 2 diabetes mellitus (HCC) Take 1 tablet (40 mg total) by mouth daily 90 tablet 3 10/21/20 25 026 Active ticagrelor (Brilinta) 60 mg tablet Take 1 tablet (60 mg total) by mouth 2 (two) times a day 180 tablet 3 10/21/20 25 Active valsartan (DIOVAN) 160 mg tablet Take 1 tablet (160 mg total) by mouth daily 05/07/20 22 025 Discontin ued(Alter john therapy) ticagrelor (Brilinta) 60 mg tablet Take 1 tablet (60 mg total) by mouth 2 (two) times a day 180 tablet 3 03/10/20 25 025 Discontin ued(Reord er) amoxicillin-clavu lanate (AUGMENTIN) 875-125 mg per tablet Take 1 tablet by mouth 2 (two) times a day for 10 days 20 tablet 09/22/20 025 Active Problems Problem Noted Date Diagnosed Date Acute kidney injury superimp osed on stage 3b chronic kidney disease 12/30/2024 Non-traumatic rhabdomyolysis 12/30/2024 NSTEMI (non-ST elevated myocardial infarction) 0 12/29/2024 Syncope and collapse 12/29/2024 Coronary artery disease of n ative artery of [place] heart with stable angina pectoris 08/23/2022 LEWIS [...] Encounters Date Type Department Care Team Description 10/14/2025 Telephone [facility] Medical [facility] Cardiology [address] [facility] [address] [place] [phone] Hailee Valdez RN 09/30/2025 Telephone [facility] Cardiology [address] [facility] [address] [place] [address] Travis Gonzalez MD drug interaction; Med Management; Hypertension 09/27/2025 Telephone [facility] Cardiology [address] [facility] [address] [place] [address] Travis Gonzalez MD 09/22/2025 4:15 PM FILTER MACHINE OPERATOR Office Visit [facility] at [address] [phone] Beatrice Em PA Dental caries (Primary Dx) 09/22/2025 11:15 AM FILTER MACHINE OPERATOR Office Visit [facility] Medical Group Cardiology [address] [place] [address] Travis Gnozalez MD Hypertension associated with stage 3 chronic kidney disease due to type 2 diabetes mellitus (HCC) (Primary Dx); Hyperlipidemia associated with type 2 diabetes mellitus (HCC); Coronary artery disease of [place] artery of [place] heart with stable angina pectoris; Syncope and collapse from Last 3 Months Surgical History Surgery Date Site/Laterality Comments DILATION AND CURETTAGE OF UTERUS CATARACT EXTRACTION, BILATERAL Bilateral CORONARY ANGIOPLASTY WITH ST ENT PLACEMENT 11/03/2021 - 11/02/2022 Medical History Medical History Date Comments Hypertension Hyperlipidemia Diabetes mellitus Acid indigestion Family History Medical History Relation Name Comments Heart disease Father Stroke Father Diabetes Mother Hypertension Mother Stroke Mother Relation Name Status Comments Father Mother Social History Tobacco Use Types Packs/Day Years Used Date Smoking Tobacco: Never Smokeless Tobacco: Never Tobacco Cessation:Counseling Given: Not Answered [facility] Utilities Answer Date Recorded In the past 12 months has [employer], gas, oil, or water [employer] threatened to shut off services in your home? No 12/29/2024 Social Connection and Isolation Panel Answer Date Recorded In a typical week, how many times do you talk on the phone with family, friends, or neighbors? More than three times a week 12/29/2024 How often do you get togethe r with friends or relatives? More than three times a week 12/29/2024 How often do you attend chur ch or quaker services? 1 to 4 times per year 12/29/2024 Do you belong to any clubs o r organizations such as temple groups, unions, fraternal or athletic groups, or [...] were you homeless or living in a long term (including now)? No 12/29/2024 Personal Safety Answer Date Recorded Have you ever been in or are you currently in a harmful physical or emotional relationship or is someone making you feel afraid or unsafe? Denies 12/29/2024 Comments Unknown Sex and Gender Information Value Date Recorded Sex Assigned at Not on file Legal Sex Female 2:29 PM FILTER MACHINE OPERATOR Gender Identity Female 03/26/2022 3:44 PM CDT Sexual Orientation Straight 03/26/2022 3: 44 PM CDT Last Filed Vital Signs Vital Sign Reading Time Taken Comments Blood Pressure 125/79 09/22/2025 4:14 PM FILTER MACHINE OPERATOR Pulse 82 09/22/2025 4:14 PM FILTER MACHINE OPERATOR Temperature 36.7 C (98.1 F) 09/22/2025 4:14 PM FILTER MACHINE OPERATOR Respiratory Rate 20 09/22/2025 4:14 PM FILTER MACHINE OPERATOR Oxygen Saturation 98% 09/22/2025 4:14 PM FILTER MACHINE OPERATOR Inhaled Oxygen Concentration - - Weight 73 kg (161 lb) 09/22/2025 4:14 PM FILTER MACHINE OPERATOR Height 152.4 cm (5') 09/22/2025 11:05 AM FILTER MACHINE OPERATOR Body Mass Index 31.44 09/22/2025 11:05 AM FILTER MACHINE OPERATOR Plan of Treatment Health Maintenance Due Date Last Done Comments Albumin Creatinine Ratio, Urine 1950 Depression Screening 1950 Hepatitis C Screening 1950 Osteoporosis Screening-Bone Density Scan 1950 Dilated Eye Exam 1949 Foot Exam 1949 DTaP/Tdap/Td Vaccine (1 - Tdap) 1960 Hepatitis B Screening 1967 Well Visit 65+ 2014 Zoster Vaccine (2 of 3) 10/28/2016 09/02/2016 Hemoglobin A1C 06/28/2025 12/29/2024 Influenza Vaccine (#1) 2025 , 08/09/2019, 06/29/2018, Additional history exists Lipid Panel 12/29/2025 12/29/2024, 01/02, 12/24/2022, Additional history exists Fall Risk Assessment 01/03/2026 01/03/2025 eGFR 01/03/2026 01/03/2025, 03/0 12/2024, 01/01/2025, Additional history exists Pneumococcal vaccine 65+ Completed 022, 06/15/2019, 07/26/2014 Procedures Procedure Name Priority Date/Time Associated Diagnosis Comments BASIC METABOLIC PANEL Routine 10/14/2025 4:04 PM FILTER MACHINE OPERATOR Hypertension associated with stage 3 chronic kidney disease due to type 2 diabetes mellitus (HCC) EGFR Routine 01/03/2025 2:06 AM FILTER MACHINE OPERATOR HEMOGLOBIN A1C STAT 12/29/2024 4:56 AM FILTER MACHINE OPERATOR LIPID PANEL STAT 12/29/2024 4:56 AM FILTER MACHINE OPERATOR from Last 3 Months or Most Recently Relevant to Health Maintenance Results * Basic metabolic panel (10/14/2025 4:04 PM FILTER MACHINE OPERATOR) Blood us Travis Gonzalez MD LAB BLOOD ORDERABLES Aranza l Result EXTERNAL LAB * (ABNORMAL) eGFR (01/03/2025 2:06 AM FILTER MACHINE OPERATOR) eGFR 42(L) >=60 mL/min/1. 73 m2 Comment: [...] last reviewed 2021. Blood 01/03/2025 2:06 AM FILTER MACHINE OPERATOR 01/03/2025 2:50 AM FILTER MACHINE OPERATOR Marva Laird NP LAB BLOOD ORDERABLES Final Result Performing Organization Address City/[facility]/ZIP Co de Phone Number SHIELA [address] [facility] Department [place] [address] * (ABNORMAL) Hemoglobin A1c (12/29/2024 4:56 AM FILTER MACHINE OPERATOR) Hgb A1C 6.4(H) 4.0 - 5.6 % Estimated Average Glucose 137 mg/dL SHIELA GUEVARA Comment: The ADA recommends reporting an estimated Average Glucose (eAG) with all Hemoglobin A1c results using the equation derived from a study of 507 normal and diabetic adults. Minority populations were underrepresented and children were not included. (Diabetes Care 31:2130-9638, 2008). The eAG is not equivalent to a fasting glucose. Blood 12/29/2024 4:56 AM FILTER MACHINE OPERATOR 12/29/2024 5:04 AM FILTER MACHINE OPERATOR us Nakul Valerio MD LAB BLOOD ORDERABLES F inal Result SHIELA GUEVARA [address] [facility] Department [place] [address] * Lipid panel (12/29/2024 4:56 AM FILTER MACHINE OPERATOR) Cholesterol 122 30 - 199 mg/dL Comment: [...] 2 SHIELA GUEVARA Blood 12/29/2024 4:56 AM FILTER MACHINE OPERATOR 12/29/2024 5:05 AM FILTER MACHINE OPERATOR us Nakul Valerio MD LAB BLOOD ORDERABLES F inal Result SHIELA GUEVARA [address] [facility] [place] [address] from Last 3 Months or Most Recently Relevant to Health Maintenance Insurance MEDICARE COMMERCIAL GENERIC MEDICARE COMMERCIAL GENERIC Advance Directives For more information, please contact: [phone] * Full Code (Latest Code Status on File) Date Activated Date Inactivated Comments 01/02/2025 10:37 AM 01/03/2025 5:53 PM Care Teams Pretzel Packer Relationship Specialty Start Date End Date Edward Acharya DO [address] [place] [address] PCP - General Family Medicine 03/05/22
--- OUTSIDE RECORDS SUMMARY | 2025-11-01 09:34 | XMS_ITS | Encounter Summary ---
Author Organization [facility] Healthcare Address [address] [place] [address] Care Team Providers Care Nursery Technician Name Role Phone Edward Acharya DO Primary Care Provider Reason for Visit * Reason Onset Date Comments drug interaction 09/30/2025 Med Management 09/30/2025 Hypertension 09/30/2025 Encounter Details Date Type Department Care Team (Late st Contact Info) Description 09/30/2025 Telephone [facility] Medical Group Cardiology [address] [facility] [address] [place] [address] Travis Gonzalez MD [address] [facility] [place] [address] [facility] [place] [address] [place] [address] drug interaction; Med Management; Hypertension Social History Tobacco Use Types Packs/Day Years Used Date Smoking Tobacco: Never Smokeless Tobacco: Never [facility] Utilities Answer Date Recorded In the past 12 months has [employer], gas, oil, or water [employer] threatened to shut off services in your [...] week 12/29/2024 How often do you attend [facility] or mormonism services? 1 to 4 times per year 12/29/2024 Do you belong to any clubs o r organizations such as pentecostal groups, unions, fraternal or athletic groups, or [...] any time in the past 12 m [facility], were you homeless or living in a [...] on file Legal Sex Female 2:29 PM CUSTOMER MARKETING MANAGER Gender Identity Female 03/26/2022 3:44 PM CDT Sexual Orientation Straight 03/26/2022 3: 44 PM CDT documented as of this encounter Ordered Prescriptions Prescription Sig Dispense Quantity Refills Last Filled Start Date End Date telmisartan (MICARDIS) 40 mg tabletIndications: Hypertension associated with stage 3 chronic kidney disease due to type 2 diabetes mellitus (HCC) Take 1 tablet (40 mg total) by mouth daily 90 tablet 3 10/21/2025 10/21/2026 documented in this encounter Miscellaneous Notes * Telephone Encounter - Hailee Gillis RN - 10/31/2025 3:59 PM CUSTOMER MARKETING MANAGER Forwarded to [facility]: Spoke to pt who states she has been on the Telmisartan for a week and her B/P is still running 164/91, 171/72 and 170/93. She is going to try going to tomorrow for repeat lab work. OMER MARKETING MANAGER * Telephone Encounter - Natalee Cabello - 10/31/2025 2:22 PM CST Pt states that she started the new BP meds on 10/25. States that her BP is still elevated. Bp readings below. Please advise. Thank you. 10/29 BP: 164/91 10/30 BP: 171/72 10/31 BP: 170/93 Contact [phone] OMER MARKETING MANAGER * Addendum Note - Hailee Gillis RN - 10/21/2025 11:18 AM CSTAddended by: HAILEE GILLIS on: 10/21/2025 11:18 AM Modules accepted: Orders OMER MARKETING MANAGER * Telephone Encounter - Hailee Gillis RN - 10/21/2025 11:14 AM CUSTOMER MARKETING MANAGER Pt informed and verbalized understanding of the above and denies questions, new RX to [facility] with note to D/C Valsartan, Repeat lab order to [facility]. Pt will call update 2 weeks after starting Telmisartan OMER MARKETING MANAGER * Telephone Encounter - Hailee Gillis RN - 10/20/2025 12:15 PM CUSTOMER MARKETING MANAGER Forwarded to [facility]: Pt calling update on B/P. Pt is taking B/P 1-2 hrs after meds. 165/85, 150/77, 160/70, 152/82, 171/89, 176/72, 168/87, 164/86, 172/89 OMER MARKETING MANAGER * Telephone Encounter - Natalee Cabello - 10/20/2025 10:07 AM CST Pt states that she has been on Rx spironolactone (ALDACTONE) 25 mg for a couple of weeks now and her BP is still not regulated. States that her BP has been ranging around 160/90. States that she has been taking her meds as prescribed and has been taking her BP 1-2 hours after her medication. Pleaseadvise. Thank you. Contact [phone] OMER MARKETING MANAGER * Telephone Encounter - Hailee Gillis RN - 10/03/2025 2:07 PM CUSTOMER MARKETING MANAGER Spoke to pharmacy, they are aware of the above message and deny further questions OMER MARKETING MANAGER * Telephone Encounter - Elda Jimenez RN - 09/30/2025 10:28 AM CUSTOMER MARKETING MANAGER Spoke with pharmacy. They would like us to be aware that she is at risk to having an increased potassium level if she were to take spironolactone (ALDACTONE) 25 mg and valsartan (DIOVAN) 160 mg. Would you like pt to continue with the prescribed medication or is there an alternative? OMER MARKETING MANAGER * Telephone Encounter - Natalee Cabello - 09/30/2025 10:07 AM CST [facility] pharmacy calling to report a drug interaction between spironolactone (ALDACTONE) 25 mg and valsartan (DIOVAN) 160 mg due to potassium levels. Please advise. Thank you. OMER MARKETING MANAGER documented in this encounter Plan of Treatment Scheduled Orders Name Type Priority Associated Diagnoses Orde r Schedule Basic metabolic panel Lab Routine Hypertension associated with stage 3 chronic kidney disease due to type 2 diabetes mellitus (HCC) Expected: 10/28/2025, Expires: 10/21/2026 documented as of this encounter Visit Diagnoses Diagnosis Hypertension associated with stage 3 chronic kidney disease due to type 2 diabetes mellitus (HCC)- Primary documented in this encounter Discontinued Medications Medication Sig Discontinue Reason Start Date End Da te valsartan (DIOVAN) 160 mg tablet Take 1 tablet (160 mg total) by mouth daily Alternate therapy 05/07/2022 10/21/2025 documented as of this encounter Care Teams Nursery Technician Relationship Specialty Start Date End Date Edward Acharya DO [address] [place] [address] PCP - General Family Medicine 03/05/22 documented as of this encounter
[2025-11-01 09:58] LABS: Anion Gap 11 mmol/L (4-12); Blood Urea Nitrogen 29 mg/dL (7-17); Calcium 10.2 mg/dL (8.4-10.2); Carbon Dioxide 24 mmol/L (22-30); Chloride 108 mmol/L (98-107); Estimated Glomerular Filt Rate 34; Glucose 126 mg/dL (65-110); Osmolality Calculated 303 mOsm/kg (285-295); Potassium 4.6 mmol/L (3.4-5.0); Sodium 143 mmol/L (137-145)
== END 2025-11-01 09:19 | disposition home or self-care (01) ==
LOC: CHSLAB 09:21
PROVIDERS: PCP Family Medicine; Visit Provider Internal Medicine Cardiovascular Disease
DX: E11.22 Type 2 diabetes mellitus with diabetic chronic kidney disease (principal); I12.9 Hypertensive chronic kidney disease with stage 1 through stage 4 chronic kidney disease, or unspecified chronic kidney disease; N18.30 Chronic kidney disease, stage 3 unspecified
CPT/HCPCS: 36415; 80048